=== PATIENT | male | born 1930 | race Caucasian/White ===

== ENCOUNTER 2017-10-05 08:02 | Emergency (ER) | payer OTHER ==
[2017-10-05 08:16] VITALS: BMI 22.8
--- NOTE | 2017-10-05 08:28 | PDOC ---
History of Present Illness - General Chief Complaint: Respiratory Stated Complaint: SOB Time Seen by Provider: 10/05/17 08:27 - History of Present Illness Initial Comments: 10/05/17 09:29 86yo man with PMH of prostate Ca (in remission), HTN, HLD, AD who presents with acute onset of generalized jerking motions of all 4 extremities. History obtained from , who is at bedside. This is the first episode. Pt denies WARD, fever, chills. No dysuria. Patient was recently started on Bupropion. 10/05/17 11:24 Past History - Past Medical History Allergies/Adverse Reactions: Allergies Allergy/AdvReac Type Severity Reaction Status Date / Time tetanus toxoid, adsorbed Allergy Verified 10/05/17 08:09 tetnus Allergy Unknown Uncoded 10/05/17 08:09 Home Medications: Ambulatory Orders Acetaminophen/Caffeine/Butalb [Fioricet -] 1 tablet PO DAILY 09/22/17 Ammonium Lactate Lotion [Lac-Hydrin 12% Lotion -] 1 applic TP ASDIR 09/22/17 Aspirin [ASA -] 81 mg PO DAILY 09/22/17 Atenolol [Tenormin -] 100 mg PO DAILY #14 tablet 09/22/17 Atorvastatin Ca [Lipitor] 10 mg PO HS 09/22/17 Furosemide 20 mg PO DAILY 09/22/17 Omeprazole 20 mg PO DAILY 09/22/17 Oxybutynin Chloride [Oxybutynin Chloride ER] 5 mg PO DAILY 09/22/17 Rivastigmine [Exelon Patch 9.5 mg/24 Hours] 1 each TD DAILY 09/22/17 Tamsulosin HCl [Flomax] 0.4 mg PO DAILY 09/22/17 COPD: No Diabetes: Yes (ALZHEIMERS.) HTN: Yes - Suicide/Smoking/Psychosocial Hx Smoking History: Never smoked Hx Alcohol Use: Yes (socially) Drug/Substance Use Hx: No Substance Use Type: None *Physical Exam - Vital Signs Last Vital Signs Temp Pulse Resp BP Pulse Ox 97.6 F 60 14 133/89 97 10/05/17 08:10 10/05/17 08:10 10/05/17 08:10 10/05/17 08:10 10/05/17 08:10 - Physical Exam General Appearance: Yes: Nourished, Appropriately Dressed HEENT: positive: Normal ENT Inspection Neck: positive: Supple Respiratory/Chest: positive: Lungs Clear, Normal Breath Sounds Cardiovascular: positive: Regular Rhythm, Regular Rate Gastrointestinal/Abdominal: positive: Soft. 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 Generalized age-related volume loss with mild microvascular ischemic changes. 10/05/17 11:23 Medical Decision Making - Medical Decision Making 86yo man who presents with acute onset of jerky motions of extremities every few minutes (witnessed here). Highest on the DDx include medication-induced, infectious, brain mets/leptomenigneal disease. Will order Head CT, cbc, cmp, trop, UA, blood cultures. 10/05/17 09:33 10/05/17 11:[address] did not reveal acute intracranial pathology, however Brain MRI with IV contrast is needed to r/o metastases/leptomeningeal disease. CBC and CMP wnl. 1st Troponin neg. 10/05/17 11:36 EKG reveals bradycardia, rate 48, with LBBB (old), QTc 473. 10/05/17 12:56 Preliminary leukocyte esterase is negative --> UA not c/w UTI. 10/05/17 13:02 Patient is overall well-appearing and non-toxic. Labs and imaging are unconcerning for acute intracranial process or infectious etiology. Likely etiology of symptoms are medication induced. We have been unable to reach patient's PCP (Dr. Mazin Enrique) after mutliple attempts. Discussed with the daughter that we have been unable to reach PCP, and discussed whether she feels comfortable taking her father home versus keeping for observation. The daughter is okay with him going home, he will be surrounded with family and agrees to following up with the patient's PCP early next week. We have recommended to discontinue the Wellbutrin until he sees his PCP to discuss it further. *DC/Admit/Observation/Transfer Diagnosis at time of Disposition: Muscle, jerky movements (uncontrolled) - Discharge Dispostion Admit: No - Referrals Referrals: STAFF,NOT ON [Primary Care Provider] - - Patient Instructions Additional Instructions: Please see your primary care physician (Dr. Mazin Enrique) early next week to discuss your symptoms and review your medications. We recommend discontinuing the Wellbutrin until you discuss it further with your primary physician. Please return to the Emergency Department if you have new, worsening, or concerning symptoms. - Post Discharge Activity
[2017-10-05 09:36] LABS: BASOPHIL 0.6 % (0-2.0); EOSINOPHIL 3.8 % (0-4.5); MCH 27.6 pg (25.7-33.7); MEAN CELL VOLUME 83.5 fl (80-96); MEAN PLT VOLUME 8.6 fl (7.5-11.1); NEUTROPHILS 55.9 % (42.8-82.8); PLATELET COUNT 247 K/MM3 (134-434); RDW 14.3 % (11.9-15.9)
[2017-10-05 10:06] LABS: ALBUMIN 2.4 g/dl (3.4-5.0); ANION GAP 5 (8-16); BILIRUBIN,TOTAL 0.5 mg/dL (0.2-1.0); CALCIUM 8.5 mg/dL (8.5-10.1); CO2 30 mmol/L (21-32); CREATININE 1.1 mg/dL (0.7-1.3); GLUCOSE,RANDOM 101 mg/dL (74-106); SGPT/ALT 18 U/L (12-78); TOT PROT 6.2 g/dl (6.4-8.2)
[2017-10-05 10:08] LABS: ALK PHOS 58 U/L (45-117); TROPONIN I < 0.02 ng/ml (0.00-0.05)
[2017-10-05 10:10] LABS: SGOT/AST 25 U/L (15-37)
--- NOTE | 2017-10-05 10:50 | PDOC ---
Attending Attestation - Resident Resident Name: Mona Canales - ED Attending Attestation I have performed the following: I have examined & evaluated the patient, The case was reviewed & discussed with the resident, I agree w/resident's findings & plan, Exceptions are as noted - HPI HPI: 10/05/17 10:45 86 year old male with past medical history of prostate ca, dementia, HTN, HLD presents with "shaking". The patient was recently started on Welbutrin 1 week ago. Yesterday, noted that he was started to have intermittent few seconds of shaking episodes (not seizures). Denies fevers, chills. Persisted throughout the day. The patient denied any fevers, nausea, vomiting, diarrhea, cough. This is the first time episode. Family was unsure of the circumstances so came into the ED. - Physicial Exam PE: 10/05/17 10:50 GENERAL: Alert and awake, AAOx3 HEENT: EOMI/PERRLA NECK: supple CV: RRR, +s1, s2 PULM: CTA b/l ABD: soft, nd, nt. NEURO: CN II-XII intact, 5/5 strength upper and lower extremities. Sensation intact throughout. No pronator drift. Speech normal. - Medical Decision Making 10/05/17 10:52 Vital Signs Temp Pulse Resp BP Pulse Ox 97.6 F 60 14 133/89 97 10/05/17 08:10 10/05/17 08:10 10/05/17 08:10 10/05/17 08:10 10/05/17 08:10 86 year old M c/ multiple medical problems presents with shakes (which I witnessed here). It could potentially be chills. Will obtain a rectal temp, labs , cultures. However, could this be medication related from the Wellbutrin? Will obtain a head CT, labs, UA, and reassess. 10/05/17 12:[address] with no acute changes. CBC, BMP 10/05/17 09:25 10/05/17 09:25 CMP Sodium 143 mmol/L (136-145) 10/05/17 09:25 Potassium 4.7 mmol/L (3.5-5.1) 10/05/17 09:25 Chloride 108 mmol/L (98-107) H 10/05/17 09:25 Carbon Dioxide 30 mmol/L (21-32) 10/05/17 09:25 Anion Gap 5 (8-16) L 10/05/17 09:25 BUN 18 mg/dL (7-18) 10/05/17 09:25 Creatinine 1.1 mg/dL (0.7-1.3) 10/05/17 09:25 Creat Clearance w eGFR > 60 (>60) 10/05/17 09:25 Random Glucose 101 mg/dL (74-106) 10/05/17 09:25 Calcium 8.5 mg/dL (8.5-10.1) 10/05/17 09:25 Total Bilirubin 0.5 mg/dL (0.2-1.0) 10/05/17 09:25 AST 25 U/L (15-37) 10/05/17 09:25 ALT 18 U/L (12-78) 10/05/17 09:25 Alkaline Phosphatase 58 U/L (45-117) 10/05/17 09:25 Troponin I < 0.02 ng/ml (0.00-0.05) 10/05/17 09:25 Total Protein 6.2 g/dl (6.4-8.2) L 10/05/17 09:25 Albumin 2.4 g/dl (3.4-5.0) L 10/05/17 09:25 Urine Test Results Urine Color Yellow 10/05/17 12:15 Urine Appearance Slcloudy 10/05/17 12:15 Urine pH 6.0 (5.0-8.0) 10/05/17 12:15 Ur Specific [place] 1.016 (1.001-1.035) 10/05/17 12:15 Urine Protein Negative (NEGATIVE) 10/05/17 12:15 Urine Glucose (UA) Negative (NEGATIVE) 10/05/17 12:15 Urine Ketones Negative (NEGATIVE) 10/05/17 12:15 Urine Blood Negative (NEGATIVE) 10/05/17 12:15 Urine Nitrite Negative (NEGATIVE) 10/05/17 12:15 Urine Bilirubin Negative (NEGATIVE) 10/05/17 12:15 Urine leukocyte esterase preliminary is negative. It is certainly very possible that this may be an effect of the medication bupriopion. The patient overall is nontoxic and well-appearing. We have attempted to reach out to the patient's doctors multiple times but awaiting response. We'll touch base with the patient's daughter and if feeling more comfortable and the doctor says okay, patient can be discharged with PMD follow- up. We'll likely consider discontinuation of Wellbutrin for the moment. At this time, I do not suspect sepsis or occult infection or metabolic disarray. The patient overall seems to be at baseline occasionally has these shakes. Given the well appearance and the overall home situation where the daughter can care for the patient, I feel that the patient is safe for discharge with strict return precautions. It is certainly possible that this may be medication effect and given that the patient was only on this medication for one week, we've recommended that he discontinued the pupils on and have him follow-up with his doctor regards to medication regiment 10/05/17 13:30 Heart Score/ECG Review #1 ECG reviewed & interpreted by me at: 11:10 10/05/17 11:26 NSR 48 with 1st degree AV block, left axis deviation, LBBB, QTC 473 msec
[2017-10-05 11:37] VITALS: TEMP 97.8
[2017-10-05 12:28] LABS: URINE APPEARANCE SLCLOUDY; URINE BILIRUBIN NEGATIVE (NEGATIVE); URINE BLOOD NEGATIVE (NEGATIVE); URINE COLOR YELLOW; URINE GLUCOSE (UA) NEGATIVE (NEGATIVE); URINE KETONE NEGATIVE (NEGATIVE); URINE NITRITE NEGATIVE (NEGATIVE); URINE PROTEIN NEGATIVE (NEGATIVE); URINE UROBILINOGEN NEGATIVE mg/dL (0.2-1.0)
[2017-10-05 13:31] VITALS: BP 159/90; PULSE 68
[2017-10-05 15:27] LABS: URINE LEUK ESTERASE Negative (NEGATIVE)
--- NOTE | 2017-10-05 21:17 | EKG ---
Test Reason : Blood Pressure : / mmHG Vent. Rate : 048 BPM Atrial Rate : 048 BPM P-R Int : 230 ms QRS Dur : 154 ms QT Int : 530 ms P-R-T Axes : 063 -48 142 degrees QTc Int : 473 ms SINUS BRADYCARDIA WITH 1ST DEGREE A-V BLOCK LEFT AXIS DEVIATION LEFT BUNDLE BRANCH BLOCK ABNORMAL ECG WHEN COMPARED WITH ECG OF 22-SEP-2017 16:15, VENT. RATE HAS DECREASED Confirmed by DAWN CHAN, CARLEY ([id number]) on 10/05/2017 9:16:48 PM Referred By: Confirmed By:CARLEY SEYMOUR MD
== END 2017-10-05 13:33 | disposition home or self-care (01) ==
LOC: JER 08:02
DX: G25.89 Other specified extrapyramidal and movement disorders (principal); I10 Essential (primary) hypertension; E78.00 Pure hypercholesterolemia, unspecified; G30.8 Other Alzheimer's disease; F02.80 Dementia in other diseases classified elsewhere, unspecified severity, without behavioral disturbance, psychotic disturbance, mood disturbance, and anxiety
CPT/HCPCS: 36415; 70450-TC; 80053; 81003; 84484; 85025; 87040; 93005; 93010; 99284-25

== ENCOUNTER 2017-11-02 10:05 | Observation (INO) | payer OTHER ==
[2017-11-02 10:33] VITALS: BMI 21.8
[2017-11-02 10:42] LABS: BASO % 0.4 % (0-2.0); EOS % 1.7 % (0-4.5); MCH 27.6 pg (25.7-33.7); MCHC 32.5 g/dl (32.0-35.9); MEAN CELL VOLUME 84.7 fl (80-96); MEAN PLT VOLUME 8.9 fl (7.5-11.1); NEUT % 68.3 % (42.8-82.8); PLATELET COUNT 293 K/MM3 (134-434); RDW 14.9 % (11.9-15.9)
--- NOTE | 2017-11-02 10:52 | PDOC ---
Attending Attestation - Resident Resident Name: Bam Morales - HPI HPI: 11/02/17 14:50 pt presents to the Ed complaining of coffee ground emesis x 2. Denies fever or abdominal pain. No bloody or dark stool. - Physicial Exam PE: 11/02/17 15:03 Agree with resident exam. Patient is well appearing and comfortable. Abdomen is non tender. - Medical Decision Making 11/02/17 15:04 Pt presents to the ED complaining of coffee ground emesis x 2. No fever, abdominal pain or bloody stools. Labs show no evidence of anemia. Will admit to medicine for observation and serial hemoglobins.
--- NOTE | 2017-11-02 10:59 | PDOC ---
History of Present Illness - General Chief Complaint: Coffee Ground Emesis Stated Complaint: GI BLEED Time Seen by Provider: 11/02/17 10:18 - History of Present Illness Initial Comments: 11/02/17 11:14 The patient is an 86 year old male with a history of HTN, Prostate CA, and Alzheimer's who presents for evaluation of bloody vomit. The patient is accompanied by family who assist in providing the history. They report that the patient experienced 2 episodes of coffee ground emasis earlier this morning prompting their presentation to the ED for evaluation. The patient denies any abdominal pain or other symptoms. He denies fevers, chills, SOB, chest pain, bloody stools or changes with urination or bowel movements. Past History - Past Medical History Allergies/Adverse Reactions: Allergies Allergy/AdvReac Type Severity Reaction Status Date / Time tetanus toxoid, adsorbed Allergy Verified 11/02/17 10:29 tetnus Allergy Unknown Uncoded 11/02/17 10:29 Home Medications: Ambulatory Orders Aspirin [ASA -] 81 mg PO DAILY 09/22/17 Atorvastatin Ca [Lipitor] 10 mg PO HS 09/22/17 Furosemide 20 mg PO DAILY 09/22/17 Omeprazole 20 mg PO DAILY 09/22/17 Oxybutynin Chloride [Oxybutynin Chloride ER] 5 mg PO DAILY 09/22/17 Tamsulosin HCl [Flomax] 0.4 mg PO DAILY 09/22/17 Alprazolam [Xanax] 0.25 mg PO HS 11/02/17 Donepezil HCl [Aricept] 5 mg PO 11/02/17 COPD: No Diabetes: Yes (ALZHEIMERS.) HTN: Yes - Suicide/Smoking/Psychosocial Hx Smoking History: Never smoked Have you smoked in the past 12 months: No Information on smoking cessation initiated: No Hx Alcohol Use: No Drug/Substance Use Hx: No Substance Use Type: None Review of Systems - Review of Systems Comments:: 11/02/17 11:19 Constitutional: No fevers, chills, fatigue, malaise HEENT: No Rhinorrhea, nasal congestion, visual changes Cardiovascular: No chest pain, syncope, palpitations, lightheadedness Respiratory: No Cough, SOB, Hemoptysis, Gastrointestinal: Nausea, Coffee Ground Emesis. No Abdominal pain, Constipation , Diarrhea, Melena Genitourinary: No Dysuria, Frequency, Urgency, Hesitancy, Hematuria, Flank pain Musculoskeletal: No Myalgia, arthralgia Skin: No rashes, bruising, pallor Neurologic: No Headache, Dizziness, Numbness, Weakness, or Tingling Psychiatric: No Hallucinations. No SI or HI *Physical Exam - Vital Signs Last Vital Signs Temp Pulse Resp BP Pulse Ox 98.6 F 58 L 20 191/84 98 11/02/17 10:29 11/02/17 10:29 11/02/17 10:29 11/02/17 10:29 11/02/17 10:29 - Physical Exam Comments: 11/02/17 11:20 General Appearance: Nourished. No Apparent Distress HEENT: EOMI, MAURO. No Pharyngeal Erythema, Tonsillar Exudate, Tonsillar Erythema Neck: No Cervical Lymphadenopathy Respiratory/Chest: Lungs Clear, Normal Breath Sounds. No Crackles, Rales, Rhonchi, Wheezing Cardiovascular: Regular Rhythm, Regular Rate. No Murmur, Gallops, Rubs Gastrointestinal/Abdominal: Normal Bowel Sounds, Soft. Mild epigastric tenderness to palpation. No Guarding, Rebound Musculoskeletal: No CVA Tenderness Extremity: Normal Capillary Refill Integumentary: Normal Color, Dry, Warm Neurologic: Alert, Normal Mood/Affect, Normal Response, ED Treatment Course - LABORATORY CBC & Chemistry Diagram: 11/02/17 10:30 11/02/17 10:30 - ADDITIONAL ORDERS Additional order review: 11/02/17 10:30 RBC 5.16 MCV 84.7 MCHC 32.5 RDW 14.9 MPV 8.9 Neutrophils % 68.3 D Lymphocytes % 22.1 D Monocytes % 7.5 Eosinophils % 1.7 Basophils % 0.4 Medical Decision Making - Medical Decision Making 11/02/17 11:21 The patient is an 86 year old male with a history of HTN, Prostate CA, and Alzheimer's who presents for evaluation of bloody vomit. Given that the patient had visible coffee-ground emesis here in the ED, it is likely his symptoms are due to an Upper GI bleed. The patient appears clinically stable on exam without any other complaints. However, we will obtain a type and screen , cbc, cmp, coags, and a stool occult blood to evaluate further. We will treat the patient with a dose of protonix and continue to monitor and reassess. 11/02/17 11:51 CBC, CMP, Coags are unremarkable. Stool occult blood is negative. Given the patient's age and history of coffee ground emesis, we believe the patient requires observation admission for further management of his symptoms. We discussed the case with the hospitalist team who accepted the patient for admission. We discussed the results and the plan with the patient and his family who voiced understanding and are agreeable with the plan. *DC/Admit/Observation/Transfer Diagnosis at time of Disposition: Coffee ground emesis - Discharge Dispostion Condition at time of disposition: Stable Admit: Yes - Referrals - Patient Instructions - Post Discharge Activity
[2017-11-02] MEDS ORDERED: PANTOPRAZOLE SODIUM 40 MG VIAL IVPUSH ONE (11:00)
[2017-11-02 11:04] LABS: INR 1.01 (0.82-1.09); PROTHROMBIN TIME (PATIENT) 11.4 SEC (9.98-11.88)
[2017-11-02 11:06] LABS: ACTIVATED PTT 21.8 SECONDS (26.9-34.4)
[2017-11-02] MEDS ORDERED: PANTOPRAZOLE SODIUM 40 MG/100 ML BAG IVPB ONE (11:09)
[2017-11-02 11:28] LABS: ALBUMIN 2.5 g/dl (3.4-5.0); ANION GAP 8 (8-16); BILIRUBIN,TOTAL 0.5 mg/dL (0.2-1.0); CALCIUM 8.8 mg/dL (8.5-10.1); CO2 27 mmol/L (21-32); CREATININE 1.1 mg/dL (0.7-1.3); GLUCOSE,RANDOM 115 mg/dL (74-106); SGPT/ALT 21 U/L (12-78)
[2017-11-02 11:29] LABS: ALK PHOS 71 U/L (45-117)
[2017-11-02 11:34] LABS: SGOT/AST 36 U/L (15-37)
--- NOTE | 2017-11-02 12:42 | EKG ---
Test Reason : Blood Pressure : / mmHG Vent. Rate : 062 BPM Atrial Rate : 062 BPM P-R Int : 234 ms QRS Dur : 156 ms QT Int : 470 ms P-R-T Axes : 041 -53 126 degrees QTc Int : 477 ms SINUS RHYTHM WITH 1ST DEGREE A-V BLOCK LEFT AXIS DEVIATION LEFT BUNDLE BRANCH BLOCK ABNORMAL ECG WHEN COMPARED WITH ECG OF 05-OCT-2017 11:09, NO SIGNIFICANT CHANGE WAS FOUND Confirmed by LOUISA CHAN, KEVIN ([id number]) on 11/02/2017 12:42:21 PM Referred By: Confirmed By:KEVIN JASSO MD
[2017-11-02] MEDS ORDERED: ACETAMINOPHEN 325 MG TABLET (FP) PO PRN (12:45)
--- NOTE | 2017-11-02 12:45 | HP ---
PCP: Mazin Enrique CHIEF COMPLAINT: Vomiting HISTORY OF PRESENT ILLNESS: This is an 86 year old man who comes to the ER today complaining of vomiting. He is unable to provide much history secondary to dementia. Family reports that he vomited coffee grounds twice this morning. They deny that he has had abdominal pain, nausea, melena, rectal bleeding, history of ulcers, weight loss, loss of appetite. PAST MEDICAL HISTORY: Hypertension Hyperlipidemia Prostate cancer Alzheimer dementia PAST SURGICAL HISTORY: Social History: Smoking: Never smoked Alcohol: No Drugs: No Recent Travel: No Family History: Non-contributory Allergies tetanus toxoid, adsorbed Allergy (Verified 11/02/17 10:29) tetnus Allergy (Unknown, Uncoded 11/02/17 10:29) Home Medications Medication Instructions Recorded Aspirin [ASA -] 81 mg PO DAILY 09/22/17 Atorvastatin Ca [Lipitor] 10 mg PO HS 09/22/17 Furosemide 20 mg PO DAILY 09/22/17 Omeprazole 20 mg PO DAILY 09/22/17 Oxybutynin Chloride [Oxybutynin 5 mg PO DAILY 09/22/17 Chloride ER] Tamsulosin HCl [Flomax] 0.4 mg PO DAILY 09/22/17 Alprazolam [Xanax] 0.25 mg PO HS 11/02/17 Donepezil HCl [Aricept] 5 mg PO 11/02/17 REVIEW OF SYSTEMS Unable to obtain PHYSICAL EXAMINATION Vital Signs - 24 hr 11/02/17 11/02/17 10:29 10:50 Temperature 98.6 F Pulse Rate 58 L Respiratory 20 Rate Blood Pressure 191/84 Blood Pressure 168/75 [Right Arm] O2 Sat by Pulse 98 100 Oximetry (%) GENERAL: Awake, alert, in no acute distress. HEAD: Normal with no signs of trauma. EYES: Pupils equal, round and reactive to light, sclerae anicteric, conjunctivae clear. EARS, NOSE, THROAT: Ears normal, nares patent, oropharynx clear without exudates. Moist mucous membranes. NECK: Normal range of motion, supple without lymphadenopathy, JVD, or masses. LUNGS: Breath sounds equal, clear to auscultation bilaterally. No wheezes, and no crackles. No accessory muscle use. HEART: Regular rate and rhythm, normal S1 and S2 without murmur, rub or gallop. ABDOMEN: Soft, nontender, not distended, normoactive bowel sounds, no guarding, no rebound, no masses. No hepatomegaly or splenomegaly. MUSCULOSKELETAL: Normal passive range of motion at all joints. No CVA tenderness. UPPER EXTREMITIES: 2+ pulses, warm, well-perfused. No cyanosis. No clubbing. No peripheral edema. LOWER EXTREMITIES: 2+ pulses, warm, well-perfused. No calf tenderness. No peripheral edema. NEUROLOGICAL: Unable to cooperate. No gross focal deficits. PSYCHIATRIC: Unable to assess. SKIN: Warm, dry, normal turgor, no rashes or lesions noted, normal capillary refill. Laboratory Results - last 24 hr 11/02/17 11/02/17 11/02/17 10:30 10:30 10:30 WBC 10.0 RBC 5.16 Hgb 14.2 Hct 43.7 MCV 84.7 MCH 27.6 MCHC 32.5 RDW 14.9 Plt Count 293 MPV 8.9 Neutrophils % 68.3 D Lymphocytes % 22.1 D Monocytes % 7.5 Eosinophils % 1.7 Basophils % 0.4 PT with INR 11.40 INR 1.01 PTT (Actin FS) 21.8 L Sodium 142 Potassium 4.6 Chloride 107 Carbon Dioxide 27 Anion Gap 8 BUN 21 H Creatinine 1.1 Creat Clearance w eGFR > 60 Random Glucose 115 H Calcium 8.8 Total Bilirubin 0.5 AST 36 D ALT 21 Alkaline Phosphatase 71 D Total Protein 7.0 Albumin 2.5 L Stool Occult Blood Blood Type Antibody Screen 11/02/17 11/02/17 10:30 11:00 WBC RBC Hgb Hct MCV MCH MCHC RDW Plt Count MPV Neutrophils % Lymphocytes % Monocytes % Eosinophils % Basophils % PT with INR INR PTT (Actin FS) Sodium Potassium Chloride Carbon Dioxide Anion Gap BUN Creatinine Creat Clearance w eGFR Random Glucose Calcium Total Bilirubin AST ALT Alkaline Phosphatase Total Protein Albumin Stool Occult Blood Negative Blood Type B POSITIVE Antibody Screen Negative ASSESSMENT/PLAN: This is an 86 year old man with a history of HTN, hyperlipidemia, prostate cancer, Alzheimer dementia who presents to the ER today with coffee grounds emesis x 2 as per family. 1. Coffee grounds emesis - No vomiting in ER - Hemoglobin 14.2 and stool is negative for occult blood - Place in observation - Monitor hemoglobin - Hold aspirin - Increase PPI to 2x daily 2. Hypertension - Continue Lasix 3. Hyperlipidemia - Continue Lipitor 4. Prostate cancer 5. Alzheimer dementia - Continue Aricept
[2017-11-02] MEDS: SODIUM CHLORIDE 0.45% 1,000 ML IV SCH (14:10)
[2017-11-02] MEDS ORDERED: LORazepam 2 MG/ML SDV VIAL IVPUSH ONE ×2 (16:27→21:00)
[2017-11-02] MEDS ORDERED: LORazepam 2 MG/ML SDV VIAL ONE (16:28)
[2017-11-02 18:27] LABS: MCH 27.8 pg (25.7-33.7); MCHC 33.1 g/dl (32.0-35.9); MEAN CELL VOLUME 83.8 fl (80-96); MEAN PLT VOLUME 9.2 fl (7.5-11.1); PLATELET COUNT 223 K/MM3 (134-434); RDW 14.5 % (11.9-15.9); WHITE BLOOD COUNT 9.4 K/mm3 (4.0-10.0)
[2017-11-02] MEDS ORDERED: ATENOLOL 50 MG TABLET (FP) PO ONE (21:00)
[2017-11-02] MEDS ORDERED: ALPRAZolam 0.25 MG TABLET PO SCH (22:00)
[2017-11-02] MEDS ORDERED: ATORVASTATIN CA 10 MG TABLET (FP) PO SCH (22:00)
[2017-11-02] MEDS ORDERED: DONEPEZIL HCL 5 MG TABLET (FP) PO SCH (22:00)
[2017-11-02] MEDS: PANTOPRAZOLE 40 MG TABLET (FP) PO SCH (22:21)
[2017-11-03] MEDS: SODIUM CHLORIDE 0.45% 1,000 ML IV SCH ×2 (06:11→12:45)
[2017-11-03] MEDS ORDERED: TAMSULOSIN HCL 0.4 MG CAP.ER.24H (FP) PO SCH (08:30)
[2017-11-03] MEDS ORDERED: OXYBUTYNIN CHLORIDE 5 MG TABLET PO SCH (10:00)
[2017-11-03] MEDS ORDERED: ATENOLOL 50 MG TABLET (FP) PO SCH (10:00)
[2017-11-03] MEDS ORDERED: SOLIFENACIN SUCCINATE 5 MG TAB (FP) PO SCH (10:00)
[2017-11-03] MEDS ORDERED: PATIENT'S OWN MEDICATION (NON-FORMULARY) (Oxybutynin Chloride [Ditropan Xl] 5 MG) PO SCH (10:00)
[2017-11-03] MEDS ORDERED: FUROSEMIDE 20 MG TABLET (FP) PO SCH (10:00)
[2017-11-03] MEDS ORDERED: DONEPEZIL HCL 5 MG TABLET (FP) PO SCH (10:00)
[2017-11-03] MEDS ORDERED: HYDROCHLOROTHIAZIDE 25 MG TABLET (FP) PO SCH (10:00)
[2017-11-03] MEDS: PANTOPRAZOLE 40 MG TABLET (FP) PO SCH (10:23)
[2017-11-03 10:48] VITALS: TEMP 97.4
--- NOTE | 2017-11-03 15:12 | PN ---
Progress Note (short form) - Note Progress Note: Subjective: The patient was seen and examined at the bedside, he appears restless. No vomiting since he arrived to the ED. F/u repeat labs today. Current Medications Generic Name Dose Route Start Last Admin Trade Name Freq PRN Reason Stop Dose Admin Acetaminophen 650 mg 11/02/17 12:45 Tylenol - PO Q4H PRN FEVER OR PAIN Atenolol 100 mg 11/03/17 10:00 11/03/17 10:23 Tenormin - PO 100 mg DAILY KARY Administration Atorvastatin Calcium 10 mg 11/02/17 22:00 11/02/17 22:21 Lipitor - PO 10 mg HS KARY Administration Donepezil HCl 5 mg 11/03/17 10:00 11/03/17 10:24 Aricept - PO 5 mg DAILY KARY Administration Furosemide 20 mg 11/03/17 10:00 11/03/17 10:22 Lasix - PO 20 mg DAILY KARY Administration Hydrochlorothiazide 25 mg 11/03/17 10:00 11/03/17 10:23 Hctz - PO 25 mg DAILY KARY Administration Sodium Chloride 1,000 mls @ 83 mls/hr 11/02/17 12:45 11/03/17 06:11 1/2 Normal Saline IV 83 mls/hr ASDIR KARY Administration Pantoprazole Sodium 40 mg 11/02/17 22:00 11/03/17 10:23 Protonix - PO 40 mg BID KARY Administration Solifenacin 5 mg 11/03/17 10:00 11/03/17 10:23 Vesicare - PO 5 mg DAILY KARY Administration Tamsulosin HCl 0.4 mg 11/03/17 08:30 11/03/17 08:17 Flomax - PO 0.4 mg DAILY@0830 KARY Administration Objective: Vital Signs Period Temp Pulse Resp BP Sys/Armendariz Pulse Ox Last 24 Hr 97.4 F-98.2 F 61-84 18-22 118-180/70-96 92-100 Physical Exam: Patient has refused CBCD WBC 9.4 K/mm3 (4.0-10.0) 11/02/17 17:59 RBC 4.86 M/mm3 (4.00-5.60) 11/02/17 17:59 Hgb 13.5 GM/dL (11.7-16.9) 11/02/17 17:59 Hct 40.7 % (35.4-49) 11/02/17 17:59 MCV 83.8 fl (80-96) 11/02/17 17:59 MCHC 33.1 g/dl (32.0-35.9) 12 17:59 RDW 14.5 % (11.9-15.9) 11/02/17 17:59 Plt Count 223 K/MM3 (134-434) D 11/02/17 17:59 MPV 9.2 fl (7.5-11.1) 11/02/17 17:59 CMP Sodium 142 mmol/L (136-145) 11/02/17 10:30 Potassium 4.6 mmol/L (3.5-5.1) 11/02/17 10:30 Chloride 107 mmol/L (98-107) 11/02/17 10:30 Carbon Dioxide 27 mmol/L (21-32) 11/02/17 10:30 Anion Gap 8 (8-16) 11/02/17 10:30 BUN 21 mg/dL (7-18) H 11/02/17 10:30 Creatinine 1.1 mg/dL (0.7-1.3) 11/02/17 10:30 Creat Clearance w eGFR > 60 (>60) 11/02/17 10:30 Random Glucose 115 mg/dL (74-106) H 11/02/17 10:30 Calcium 8.8 mg/dL (8.5-10.1) 11/02/17 10:30 Total Bilirubin 0.5 mg/dL (0.2-1.0) 11/02/17 10:30 AST 36 U/L (15-37) D 11/02/17 10:30 ALT 21 U/L (12-78) 11/02/17 10:30 Alkaline Phosphatase 71 U/L (45-117) D 11/02/17 10:30 Total Protein 7.0 g/dl (6.4-8.2) 11/02/17 10:30 Albumin 2.5 g/dl (3.4-5.0) L 11/02/17 10:30 Assessment: This is an 86 year old male with PMHx of of HTN, hyperlipidemia, prostate cancer, alzheimer's dementia, who presented to the ED with vomiting and two episodes of coffee ground emesis Plan: 1) Coffee ground emesis - No further episodes since arriving in the ED - F/u H/Ht today, if stable can discharge home with GI follow-up as outpatient - Continue Protonix 40mg po bid - Hold ASA 2) HTN - Continue Atenolol - Continue Lasix - Continue Hctz 3) Hyperlipidemia - Continue Lipitor 4) Prostate cancer 5) Alzheimer dementia - Continue Aricept 6) F/E/N: - Sodium controlled diet - Monitor electrolytes 7) Prophylaxis: - PT evaluation - Hold all chemical DVT prophylaxis 2/2 possible GI bleed 8) Dispo: - Once CBC results and H/H is stable and PT evaluation performed CODE STATUS: FULL CODE Visit type - Emergency Visit Emergency Visit: Yes ED Registration Date: 11/02/17 Care time: The patient presented to the Emergency Department on the above date and was hospitalized for further evaluation of their emergent condition. - New Patient This patient is new to me today: Yes Date on this admission: 11/03/17 - Critical Care Critical Care patient: No
[2017-11-03 17:26] LABS: BASO # 0.1 # (0.1-1); BASO % 0.9 % (0-2.0); EOS # 0.2 # (0-4.5); EOS % 1.7 % (0-4.5); LYMPH # 1.9 (8-40); MCH 27.7 pg (25.7-33.7); MCHC 33.2 g/dl (32.0-35.9); MEAN CELL VOLUME 83.4 fl (80-96); MEAN PLT VOLUME 9.5 fl (7.5-11.1); MONO # 1.2 # (3.8-10.2); NEUT # 6.6 # (42.8-82.8); NEUT % 66.6 % (42.8-82.8); PLATELET COUNT 245 K/MM3 (134-434); RDW 14.7 % (11.9-15.9)
[2017-11-03 18:08] LABS: ALBUMIN 2.4 g/dl (3.4-5.0); ANION GAP 9 (8-16); BILIRUBIN,TOTAL 0.6 mg/dL (0.2-1.0); CALCIUM 8.1 mg/dL (8.5-10.1); CO2 26 mmol/L (21-32); CREATININE 1.1 mg/dL (0.7-1.3); GLUCOSE,RANDOM 93 mg/dL (74-106); SGOT/AST 30 U/L (15-37); SGPT/ALT 19 U/L (12-78); TOT PROT 6.2 g/dl (6.4-8.2)
[2017-11-03 18:09] LABS: ALK PHOS 65 U/L (45-117)
--- NOTE | 2017-11-03 19:06 | DS ---
Physical Examination Vital Signs: Vital Signs Temperature 97.4 F L 11/03/17 19:00 Pulse Rate 78 11/03/17 19:00 Respiratory Rate 18 11/03/17 19:00 Blood Pressure 154/62 11/03/17 19:00 O2 Sat by Pulse Oximetry (%) 92 L 11/03/17 12:00 Labs: CBC, BMP 11/03/17 16:00 11/03/17 16:00 Discharge Summary Reason For Visit: COFFEE GROUND EMESIS Current Active Problems Coffee ground emesis (Acute) Condition: Improved - Instructions Diet, Activity, Other Instructions: Please return to the ED with new, persistent, or worsening symptoms. Please follow-up with providers as indicated. Referrals: Thiago Moreno MD [Staff Physician] - (Please follow-up with your primary care provider within 1 week to have your CBC (hemoglobin and hematocrit) rechecked. ) Miguel Gray MD [Staff Physician] - (Please follow-up with Dr. Gray ( gastrointestinal specialist) within 1 week ) Disposition: VNS/HOME HEALTH CARE - Home Medications Comprehensive Discharge Medication List: Ambulatory Orders Atorvastatin Ca [Lipitor] 10 mg PO HS 09/22/17 Furosemide 20 mg PO DAILY 09/22/17 Tamsulosin HCl [Flomax] 0.4 mg PO DAILY 09/22/17 Alprazolam [Xanax] 0.25 mg PO HS 11/02/17 Atenolol [Tenormin -] 100 mg PO DAILY 11/02/17 Hydrochlorothiazide [Hctz -] 25 mg PO DAILY 11/02/17 Oxybutynin Chloride [Ditropan Xl] 5 mg PO DAILY 11/02/17 Acetaminophen [Tylenol .Regular Strength -] 650 mg PO Q4H PRN tablet 11/03/17 Donepezil HCl [Aricept] 5 mg PO DAILY #30 tab 11/03/17 Pantoprazole Sodium [Protonix -] 40 mg PO BID #60 tablet.ec 11/03/17 Solifenacin Succinate [Vesicare -] 5 mg PO DAILY #30 tab 11/03/17
[2017-11-03 19:25] VITALS: BP 140/80; PULSE 85
== END 2017-11-03 21:06 | disposition home health service (06) ==
LOC: JER 10:05 → INTOOBSV 11:53 → JERBED 11:53 → UNDOADMOB 11:53 → JERBED 12:47 → J5S 17:30
PROVIDERS: ADMIT Internal Medicine; ATTEND Registered Nurse
PROC: 3E033GC Introduction of Other Therapeutic Substance into Peripheral Vein, Percutaneous Approach (ICD-10-PCS; principal; 2017-11-02)
PROC: 3E0337Z Introduction of Electrolytic and Water Balance Substance into Peripheral Vein, Percutaneous Approach (ICD-10-PCS; 2017-11-02)
DX: K92.0 Hematemesis (principal); I10 Essential (primary) hypertension; C61 Malignant neoplasm of prostate; G30.9 Alzheimer's disease, unspecified; F02.80 Dementia in other diseases classified elsewhere, unspecified severity, without behavioral disturbance, psychotic disturbance, mood disturbance, and anxiety; Z88.8 Allergy status to other drugs, medicaments and biological substances; Z79.82 Long term (current) use of aspirin; E78.5 Hyperlipidemia, unspecified
CPT/HCPCS: 36415; 80053; 82272; 85025; 85027; 85610; 85730; 86850; 86900; 86901; 93005; 93010; 96374; 96375; 96376; 97116-GP; 97161-GP; 99285-25; G0378

== ENCOUNTER 2018-06-17 11:57 | Observation (INO) | payer OTHER ==
--- NOTE | 2018-06-17 12:04 | PDOC ---
Attending Attestation - Resident Resident Name: Maria Luisa Garcia - ED Attending Attestation I have performed the following: I have examined & evaluated the patient, The case was reviewed & discussed with the resident, I agree w/resident's findings & plan, Exceptions are as noted - HPI HPI: 87 yo M with history of HTN, HL, prostate CA, dementia presents s/p unwitnessed fall at 4am. As per , he was attempting to use urinal, missed it, then slipped and fell on his urine. He landed on his left side. He had difficulty getting up and she was unable to help him. The home health aide was able to help them 30 minutes later. As per the , he was awake when she came to his side, but he was speaking in an unintelligible manner. After a few minutes, it improved back to baseline. Pt currently denies any symptoms, however, does not clearly recall what happened. - Physicial Exam PE: GENERAL: Awake, alert, and oriented to person and place but not time. In no acute distress HEAD: No signs of trauma EYES: PERRLA, EOMI, sclera anicteric, conjunctiva clear ENT: Auricles normal inspection, hearing grossly normal, nares patent, oropharynx clear without exudates. Moist mucosa NECK: Normal ROM, supple, no lymphadenopathy, JVD, or masses LUNGS: Breath sounds equal, clear to auscultation bilaterally. No wheezes, and no crackles HEART: Regular rate and rhythm, normal S1 and S2, no murmurs, rubs or gallops ABDOMEN: Soft, nontender, normoactive bowel sounds. No guarding, no rebound. No masses MUSCULOSKELETAL: Normal range of motion. 2+ pitting edema to BLE, mid-lance. No clubbing or cyanosis. No cords, erythema, or tenderness. Pelvis stable and nontender. NEUROLOGICAL: Cranial nerves II through XII grossly intact. Normal speech. Motor and sensation intact. SKIN: Warm, Dry, normal turgor, no rashes or lesions noted. - Medical Decision Making Pt presents s/p unwitnessed fall, now having difficulty walking due to weakness. AMS workup done in ED, no specific findings to explain his state this morning. will admit for further workup.
--- NOTE | 2018-06-17 12:06 | PDOC ---
History of Present Illness - General Stated Complaint: FALL Time Seen by Provider: 06/17/18 12:01 - History of Present Illness Initial Comments: 87yo M with PMH of HTN, HLD, Prostate Cancer, and Alzheimer's Dementia presenting after an unwitnessed fall at 4am. The patient reports he does not remember what happened but his says that he uses a urinal and slipped on urine that had spilled and fell on his left side. A similar incident occurred about three months ago. The reports that during the fall, the patient yelled, and she came to him immediately and denies loss of consciousness or seizure-like activity. She needed a home health aide to help lift the patient up so he remained on the floor for about a half hour. The patient's decided to bring him to the ED because immediately after the fall, the words he spoke did not make sense and he seemed very agitated. The patient has not been able to ambulate since the fall. Denies the use of a blood thinner or anticoagulant. Denies headache or neck pain. Denies chest pain, shortness of breath, or dental injury. 06/17/18 12:47 Past History - Past Medical History Allergies/Adverse Reactions: Allergies Allergy/AdvReac Type Severity Reaction Status Date / Time tetanus toxoid, adsorbed Allergy Verified 06/17/18 12:20 tetnus Allergy Unknown Uncoded 06/17/18 12:20 Home Medications: Ambulatory Orders Atorvastatin Ca [Lipitor] 10 mg PO HS 09/22/17 Tamsulosin HCl [Flomax] 0.4 mg PO DAILY 09/22/17 Atenolol [Tenormin -] 100 mg PO DAILY 11/02/17 Oxybutynin Chloride [Ditropan Xl] 5 mg PO DAILY 11/02/17 Donepezil HCl [Aricept] 5 mg PO DAILY #30 tab 11/03/17 Citalopram Hydrobromide [Citalopram HBr] 10 mg PO DAILY 06/17/18 Omeprazole 20 mg PO DAILY 06/17/18 Oxybutynin Chloride [Oxybutynin Chloride ER] 5 mg PO DAILY 06/17/18 COPD: No Dementia: Yes Diabetes: Yes (ALZHEIMERS.) Disorders: Yes (prostate ca) HTN: Yes Hypercholesterolemia: Yes - Immunization History Immunization Up to Date: Yes - Suicide/Smoking/Psychosocial Hx Smoking History: Never smoked Have you smoked in the past 12 months: No Hx Alcohol Use: No Drug/Substance Use Hx: No Substance Use Type: None Review of Systems - Review of Systems Comments:: Constitutional: no fever, no chills Cardiovascular: no chest pain, no palpitations Respiratory: no cough, no shortness of breath Gastrointestinal: no abdominal pain, no nausea, no vomiting Genitourinary: no dysuria, no frequency Musculoskeletal: no myalgia, no arthralgia Skin: no rash, no itching Neurologic: no headache, no dizziness *Physical Exam - Physical Exam Comments: General: Awake, alert, and fully oriented, in no acute distress Head: no signs of trauma Eyes: PERRL, EOMI, sclera anicteric ENT: Moist mucus membranes, Neck: Normal ROM, supple Lungs: Lungs clear, Normal breath sounds Cardio: Regular rhythm, S1 and S2 present Abdomen: Soft, nontender, normal bowel sounds Extremities: Normal range of motion, Distal pulses present SKIN: Warm, Dry, normal turgor, no rashes or lesions noted Neurologic: Cranial nerves II through XII grossly intact. Normal speech ED Treatment Course - LABORATORY CBC & Chemistry Diagram: 06/17/18 13:05 06/17/18 13:05 Medical Decision Making - Medical Decision Making 87yo M with unwitnessed fall, unable to ambulate afterwards. EKG, rate 4, QTc 460, 1st degree AV block, LAD, LBBB, consistent with EKG on 11/02/2017. Labs unremarkable. CT head and c spine with no evidence of bleed or fracture. Spoke with inpatient team who will accept patient for observation. 06/17/18 15:04 *DC/Admit/Observation/Transfer Diagnosis at time of Disposition: Fall Qualifiers: Encounter type: initial encounter Qualified Code(s): W19.XXXA - Unspecified fall, initial encounter - Discharge Dispostion Condition at time of disposition: Stable Decision to Admit order: Yes - Referrals - Patient Instructions - Post Discharge Activity
[2018-06-17 12:20] VITALS: BMI 22.1
[2018-06-17 13:15] LABS: BASO % 0.4 % (0-2.0); EOS % 3.9 % (0-4.5); HEMATOCRIT 38.2 % (35.4-49); HEMOGLOBIN 12.8 GM/dL (11.7-16.9); LYMPH % 29.4 % (8-40); MCH 27.6 pg (25.7-33.7); MCHC 33.5 g/dl (32.0-35.9); MEAN CELL VOLUME 82.4 fl (80-96); MEAN PLT VOLUME 8.9 fl (7.5-11.1); MONO % 10.5 % (3.8-10.2); NEUT % 55.8 % (42.8-82.8); PLATELET COUNT 187 K/MM3 (134-434); RBC 4.64 M/mm3 (4.00-5.60); WHITE BLOOD COUNT 6.7 K/mm3 (4.0-10.0)
[2018-06-17 13:25] LABS: INR 1.12 (0.83-1.09); PROTHROMBIN TIME (PATIENT) 12.6 SEC (9.7-13.0)
[2018-06-17 13:32] LABS: URINE APPEARANCE CLEAR; URINE BILIRUBIN NEGATIVE (<2.0 mg/dL); URINE COLOR LTYELLOW; URINE GLUCOSE (UA) NEGATIVE (NEGATIVE); URINE KETONE NEGATIVE (NEGATIVE); URINE LEUK ESTERASE NEGATIVE (NEGATIVE); URINE NITRITE NEGATIVE (NEGATIVE); URINE PROTEIN NEGATIVE (NEGATIVE); URINE UROBILINOGEN NEGATIVE mg/dL (0.2-1.0)
[2018-06-17 13:35] LABS: ALBUMIN 2.2 g/dl (3.4-5.0); ANION GAP 6 (8-16); BILIRUBIN,TOTAL 0.3 mg/dL (0.2-1.0); BLOOD UREA NITROGEN 15 mg/dL (7-18); CALCIUM 8.5 mg/dL (8.5-10.1); CHLORIDE 110 mmol/L (98-107); CO2 29 mmol/L (21-32); CREATININE 1.2 mg/dL (0.7-1.3); GLUCOSE,RANDOM 99 mg/dL (74-106); POTASSIUM 4.2 mmol/L (3.5-5.1); SGOT/AST 25 U/L (15-37); SGPT/ALT 18 U/L (12-78); SODIUM 145 mmol/L (136-145); TOT PROT 5.7 g/dl (6.4-8.2)
[2018-06-17 13:38] LABS: ALK PHOS 52 U/L (45-117)
--- NOTE | 2018-06-17 16:58 | HP ---
Admitting History and Physical - Admission Chief Complaint: s/p fall History of Present Illness: This is an 87year old male with pmhx HTN, HLD, prostate ca (treated) Alzheimer' s Dementia presented to the ED after unwitnessed fall at 4am. Per , she heard him yell out, he was down for ~30 mins bc she needed home health aid to help her lift him. He slipped on urine on the floor from use of urinal and landed on his left side, currently in no pain with return to baseline mental status. Reports no hitting of head, LOC, or anti coagulates. History Source: Patient, Medical Record Limitations to Obtaining History: Dementia - Past Medical History Cardiovascular: Yes: HTN Renal/: Yes: BPH, Cancer (prostate) - Smoking History Smoking history: Never smoked Have you smoked in the past 12 months: No - Alcohol/Substance Use Hx Alcohol Use: No - Social History Usual Living Arrangement: Yes: With Spouse ADL: Support Services History of Recent Travel: No Home Medications - Allergies Allergies/Adverse Reactions: Allergies Allergy/AdvReac Type Severity Reaction Status Date / Time tetanus toxoid, adsorbed Allergy Verified 06/17/18 12:20 tetnus Allergy Unknown Uncoded 06/17/18 12:20 - Home Medications Home Medications: Ambulatory Orders Atorvastatin Ca [Lipitor] 10 mg PO HS 09/22/17 Tamsulosin HCl [Flomax] 0.4 mg PO DAILY 09/22/17 Atenolol [Tenormin -] 100 mg PO DAILY 11/02/17 Oxybutynin Chloride [Ditropan Xl] 5 mg PO DAILY 11/02/17 Donepezil HCl [Aricept] 5 mg PO DAILY #30 tab 11/03/17 Citalopram Hydrobromide [Citalopram HBr] 10 mg PO DAILY 06/17/18 Omeprazole 20 mg PO DAILY 06/17/18 Oxybutynin Chloride [Oxybutynin Chloride ER] 5 mg PO DAILY 06/17/18 Review of Systems - Review of Systems Constitutional: reports: No Symptoms Eyes: reports: No Symptoms HENT: reports: No Symptoms Neck: reports: No Symptoms Cardiovascular: reports: No Symptoms Respiratory: reports: No Symptoms Gastrointestinal: reports: No Symptoms Genitourinary: reports: No Symptoms Musculoskeletal: reports: No Symptoms Integumentary: reports: No Symptoms Neurological: reports: Pre-Existing Deficit, Unsteady Gait Endocrine: reports: No Symptoms Hematology/Lymphatic: reports: No Symptoms Psychiatric: reports: No Symptoms Physical Examination Vital Signs: Vital Signs Temperature 98.3 F 06/17/18 12:16 Pulse Rate 59 L 06/17/18 12:16 Respiratory Rate 17 06/17/18 12:16 Blood Pressure 157/81 06/17/18 12:16 O2 Sat by Pulse Oximetry (%) 96 06/17/18 12:16 Constitutional: Yes: Calm Eyes: Yes: Conjunctiva Clear HENT: Yes: Atraumatic Neck: Yes: Supple Cardiovascular: Yes: Regular Rate and Rhythm, S1, S2 Respiratory: Yes: Regular, CTA Bilaterally Gastrointestinal: Yes: Normal Bowel Sounds, Soft Musculoskeletal: Yes: WNL Extremities: Yes: WNL Edema: Yes Edema: LLE: 1+, RLE: 1+ Neurological: Yes: Alert, Oriented, Confusion, Cran Nerves II-XII Intact, Pre- Existing Deficit Psychiatric: Yes: Alert Labs: CBC, BMP 06/17/18 13:05 06/17/18 13:05 Imaging - Results Chest X-ray: Report Reviewed X-ray: Report Reviewed Cat Scan: Report Reviewed EKG: Report Reviewed (SB w 1 degree avb) Problem List - Problems (1) Fall Code(s): W19.XXXA - UNSPECIFIED FALL, INITIAL ENCOUNTER Qualifiers: Encounter type: initial encounter Qualified Code(s): W19.XXXA - Unspecified fall, initial encounter Assessment/Plan Assessment: 87 year old male admitted s/p unwitnessed fall Plan: 1. s/p mechanical fall - Likely due to spilled urine, however due to pre existing dementia will need to r/o alternative etiology; pt bradycardic with 1 degree avb, stop bb - PT evaluation, will likely need walker, refuses NH - Telemetry monitoring, r/o arrhythmia - Head CT neg - UA, cxr neg for infectious signs 2. HTN, sinus sara - Elevated in ER - Hold BB - Trend, may need to start on low dose ca ch will 3. Prostate ca/BPH - Cont home meds 4. DVT - heparin sq 5. Dementia - Aricept 5mg daily Visit type - Emergency Visit Emergency Visit: Yes ED Registration Date: 06/17/18 Care time: The patient presented to the Emergency Department on the above date and was hospitalized for further evaluation of their emergent condition. - New Patient This patient is new to me today: Yes Date on this admission: 06/17/18 - Critical Care Critical Care patient: No Hospitalist Screening - Colonoscopy Questionnaire Colonoscopy Questionnaire: Colonoscopy Questionnaire - Patient: 50 - 75 years old and never had a screening colonoscopy: Unknown History of colon or rectal polyps, or CA: Unknown History of IBD, Crohn's disease or UC: Unknown History of abdominal radiation therapy as a child: Unknown - Relative: 1 with colon or rectal CA, or polyps at age 60 or younger: Unknown Colon or rectal CA diagnosed at age 45 or younger: Unknown Multiple relatives with colon or rectal CA: Unknown - Outcome: Screening Result: Negative Screen
[2018-06-17] MEDS ORDERED: HALOPERIDOL LACTATE 5 MG/ML IM ONE (21:37)
[2018-06-17] MEDS ORDERED: HALOPERIDOL LACTATE 5 MG/ML ONE (21:43)
[2018-06-17] MEDS ORDERED: ATORVASTATIN CA 10 MG TABLET (FP) ONE (22:43)
[2018-06-17] MEDS ORDERED: HEPARIN NA (PORCINE) 5,000 UNITS/ML 1ML VIAL ONE (22:43)
[2018-06-17] MEDS: ATORVASTATIN CA 10 MG TABLET (FP) PO SCH (22:53)
[2018-06-17] MEDS: HEPARIN NA (PORCINE) 5,000 UNITS/ML 1ML VIAL SQ SCH (22:53)
[2018-06-18 09:22] LABS: BASO % 0.4 % (0-2.0); EOS % 2.1 % (0-4.5); HEMATOCRIT 43.3 % (35.4-49); HEMOGLOBIN 14.3 GM/dL (11.7-16.9); LYMPH % 32.9 % (8-40); MCH 27.4 pg (25.7-33.7); MCHC 33.1 g/dl (32.0-35.9); MEAN CELL VOLUME 82.7 fl (80-96); MEAN PLT VOLUME 9.5 fl (7.5-11.1); MONO % 9.5 % (3.8-10.2); NEUT % 55.1 % (42.8-82.8); PLATELET COUNT 228 K/MM3 (134-434); RBC 5.23 M/mm3 (4.00-5.60); RDW 14.8 % (11.9-15.9); WHITE BLOOD COUNT 9.7 K/mm3 (4.0-10.0)
[2018-06-18 09:47] LABS: ALBUMIN 2.5 g/dl (3.4-5.0); ANION GAP 9 (8-16); BILIRUBIN,TOTAL 0.5 mg/dL (0.2-1.0); BLOOD UREA NITROGEN 11 mg/dL (7-18); CALCIUM 8.7 mg/dL (8.5-10.1); CHLORIDE 105 mmol/L (98-107); CO2 27 mmol/L (21-32); GLUCOSE,RANDOM 97 mg/dL (74-106); SGOT/AST 25 U/L (15-37); SGPT/ALT 20 U/L (12-78); SODIUM 141 mmol/L (136-145); TOT PROT 6.6 g/dl (6.4-8.2)
[2018-06-18 09:51] LABS: ALK PHOS 60 U/L (45-117)
--- NOTE | 2018-06-18 11:49 | EKG ---
Test Reason : Blood Pressure : / mmHG Vent. Rate : 054 BPM Atrial Rate : 054 BPM P-R Int : 240 ms QRS Dur : 150 ms QT Int : 486 ms P-R-T Axes : 059 -50 135 degrees QTc Int : 460 ms SINUS BRADYCARDIA WITH 1ST DEGREE A-V BLOCK LEFT AXIS DEVIATION LEFT BUNDLE BRANCH BLOCK ABNORMAL ECG WHEN COMPARED WITH ECG OF 02-NOV-2017 10:20, NO SIGNIFICANT CHANGE WAS FOUND Confirmed by KODI CHAN, LINNEA ([id number]) on 06/18/2018 11:49:17 AM Referred By: Confirmed By:LINNEA MARIEE MD
[2018-06-18] MEDS: HEPARIN NA (PORCINE) 5,000 UNITS/ML 1ML VIAL SQ SCH ×2 (12:11→23:00)
[2018-06-18] MEDS: CITALOPRAM HYDROBROMIDE 10 MG TABLET (FP) PO SCH (12:12)
[2018-06-18] MEDS: SOLIFENACIN SUCCINATE 5 MG TAB (FP) PO SCH (12:12)
--- NOTE | 2018-06-18 19:50 | PN ---
Physical Exam: SUBJECTIVE: Patient seen and examined in ED. present. Still waiting for floor bed. OBJECTIVE: Vital Signs Period Temp Pulse Resp BP Sys/Armendariz Pulse Ox Last 24 Hr 98 F-98.2 F 64-87 15-22 110-125/84-110 96-97 GENERAL: The patient is awake. He is nonverbal at baseline. Mildly agitated. LUNGS: Breath sounds equal, clear to auscultation HEART: Regular rate and rhythm, S1, S2 ABDOMEN: Soft, nontender, nondistended EXTREMITIES: 2+ pulses, warm, well-perfused, 1+ b/l edema NEUROLOGICAL: Cranial nerves II through XII grossly intact Laboratory Results - last 24 hr 06/18/18 06/18/18 09:10 09:10 WBC 9.7 RBC 5.23 Hgb 14.3 Hct 43.3 MCV 82.7 MCH 27.4 MCHC 33.1 RDW 14.8 Plt Count 228 D MPV 9.5 Absolute Neuts (auto) 5.3 Neutrophils % 55.1 Lymphocytes % 32.9 Monocytes % 9.5 Eosinophils % 2.1 Basophils % 0.4 Nucleated RBC % 0 Sodium 141 Potassium 4.0 Chloride 105 Carbon Dioxide 27 Anion Gap 9 BUN 11 Creatinine 1.0 Creat Clearance w eGFR > 60 Random Glucose 97 Calcium 8.7 Total Bilirubin 0.5 AST 25 ALT 20 Alkaline Phosphatase 60 Creatine Kinase 212 Creatine Kinase Index 1.9 CK-MB (CK-2) 4.12 H Troponin I 0.02 Total Protein 6.6 Albumin 2.5 L Active Medications Generic Name Dose Route Start Last Admin Trade Name Freq PRN Reason Stop Dose Admin Atorvastatin Calcium 10 mg 06/17/18 22:00 06/17/18 22:53 Lipitor - PO 10 mg HS KARY Administration Citalopram Hydrobromide 10 mg 06/18/18 10:00 06/18/18 12:12 Celexa - PO 10 mg DAILY KARY Administration Donepezil HCl 5 mg 06/18/18 22:00 Aricept - PO HS KARY Heparin Sodium (Porcine) 5,000 unit 06/17/18 22:00 06/18/18 12:11 Heparin - SQ 5,000 unit BID KARY Administration Solifenacin 5 mg 06/18/18 10:00 06/18/18 12:12 Vesicare - PO 5 mg DAILY KARY Administration ASSESSMENT/PLAN 87 year-old male with a PMH significant for HTN, HLD, prostate cancer (treated) , and dementia, placed on observation after an unwitnessed fall. Unwitnessed fall at home --CT head negative x 2 --imaging negative for fractures Possible syncopal episode --troponins neg x 2 --ECG sinus sara @ 54bpm with first degree block; hold beta blockers --telemetry monitoring --echo ordered --cardiology consult --afebrile, no leukocytosis, urine clear, CXR clear, no indication for infection Hypertension --was on atenolol 100mg at home, now on hold --normotensive Prostate cancer treated BPH --continue tamsulosin, oxybutynin Dementia --continue citalopram, donepezil DVT prophylaxis: subq heparin Visit type - Emergency Visit Emergency Visit: Yes ED Registration Date: 06/17/18 Care time: The patient presented to the Emergency Department on the above date and was hospitalized for further evaluation of their emergent condition. - New Patient This patient is new to me today: Yes Date on this admission: 06/18/18 - Critical Care Critical Care patient: No
[2018-06-18] MEDS ORDERED: DONEPEZIL HCL 5 MG TABLET (FP) PO SCH (22:00)
[2018-06-18] MEDS: ATORVASTATIN CA 10 MG TABLET (FP) PO SCH (23:00)
[2018-06-19] MEDS ORDERED: DONEPEZIL HCL 5 MG TABLET (FP) ONE (00:07)
[2018-06-19] MEDS ORDERED: ATORVASTATIN CA 10 MG TABLET (FP) ONE (00:07)
[2018-06-19] MEDS ORDERED: HEPARIN NA (PORCINE) 5,000 UNITS/ML 1ML VIAL ONE (00:08)
--- NOTE | 2018-06-19 09:11 | CON.CARD ---
Consult Consult Specialty:: Cardiology Referred by:: Hospitalist Reason for Consultation:: Fall possible syncope - History of Present Illness Chief Complaint: Fall at home History of Present Illness: 87 year old man with pmh HTN, HLD, Prostate Ca, Alzheimers dementia admitted 06/17 with an unwitnessed fall. as per report pts stated that he had fallen after slipping on spilled urine on the floor. pt had had a similar episode approx 3 months ago when he fell and yelled out to his and there was clearly no loss of consciousness. This episode was not as clear as pt was confused and had slurred speech after falling and was unable to recall what led to his falling. Pt was seen and examined today in [facility]. Pt not providing a history currently. he is awake and alert but not answering questions either in estonian or equatorial guinean. No reported chest pain, sob, palpitations, pnd, orthopnea, le edema, lightheadedness, or dizziness. - History Source History Provided By: Patient, Medical Record, Caregiver Limitations to Obtaining History: Poor Historian - Past Medical History Cardio/Vascular: Yes: HTN Renal/: Yes: BPH, Cancer (prostate) - Alcohol/Substance Use Hx Alcohol Use: No - Smoking History Smoking history: Never smoked Have you smoked in the past 12 months: No - Social History ADL: Support Services History of Recent Travel: No Home Medications - Allergies Allergies/Adverse Reactions: Allergies Allergy/AdvReac Type Severity Reaction Status Date / Time tetanus toxoid, adsorbed Allergy Verified 06/17/18 12:20 tetnus Allergy Unknown Uncoded 06/17/18 12:20 - Home Medications Home Medications: Ambulatory Orders Atorvastatin Ca [Lipitor] 10 mg PO HS 09/22/17 Tamsulosin HCl [Flomax] 0.4 mg PO DAILY 09/22/17 Atenolol [Tenormin -] 100 mg PO DAILY 11/02/17 Oxybutynin Chloride [Ditropan Xl] 5 mg PO DAILY 11/02/17 Donepezil HCl [Aricept] 5 mg PO DAILY #30 tab 11/03/17 Citalopram Hydrobromide [Citalopram HBr] 10 mg PO DAILY 06/17/18 Omeprazole 20 mg PO DAILY 06/17/18 Oxybutynin Chloride [Oxybutynin Chloride ER] 5 mg PO DAILY 06/17/18 Family Disease History - Family Disease History Family History: Unable to Obtain Review of Systems - Review of Systems Constitutional: reports: Weakness. denies: No Symptoms, Chills, Diaphoresis, Fever, Lethargy, Loss of Appetite, Malaise, Night Sweats, Unintentional Wgt. Loss, Other Eyes: denies: No Symptoms, Blind Spots, Blurred Vision, Double Vision, Eye Pain , Floaters, Photophobia, Recent Change in Vision, Other HENT: denies: No Symptoms, Difficult Swallowing, Ear Discharge, Ear Pain, Epistaxis, Gingival Bleeding, Hearing Loss, Mouth Swelling, Nasal Congestion, Ocular Prosthesis, Throat Pain, Toothache, Ringing in Ears, Other Neck: denies: No Symptoms, Decreased ROM, Lumps, Pain on Movement, Stiffness, Swollen Glands, Tenderness, Other Cardiovascular: denies: No Symptoms, Chest Pain, Edema, Palpitations, Shortness of Breath, Other Respiratory: denies: No Symptoms, Cough, Exercise Intolerance, Hemoptysis, Orthopnea, PND, Snoring, SOB, SOB on Exertion, Wheezing, Other Gastrointestinal: denies: No Symptoms, Abdominal Pain, Bloating, Constipation, Diarrhea, Dysphagia, Indigestion, Melena, Nausea, Rectal Bleeding, Vomiting, Vomiting Blood, Other Genitourinary: denies: No Symptoms, Burning, Discharge, Dysuria, Flank Pain, Frequency, Hematuria, Incontinence, Lesions, Menses, Pain, Testicular Mass, Testicular Pain, Testicular Swelling, Urgency, Vaginal Bleeding, Other Breasts: denies: No Symptoms Reported, See HPI, Breast Implants, Discharge from Nipple, Lumps, Pain, Skin Changes, Other Musculoskeletal: denies: No Symptoms, Back Pain, Crepitus, Decreased ROM, Extremity Pain, Joint Pain, Joint Swelling, Muscle Pain, Muscle Cramps, Muscle Weakness, Other Integumentary: denies: No Symptoms, Blister, Bruising, Change in Color, Eczema, Erythema, Incision, Lesions, Lump, Pallor, Pruritis, Rash, Wound, Other Neurological: reports: Unsteady Gait. denies: No Symptoms, Change in LOC, Change in Speech, Confusion, Dizziness, Headache, Incoordination, Numbness, Parasthesia, Pre-Existing Deficit, Seizure, Syncope, Tremors, Weakness, Other Endocrine: denies: No Symptoms, Excessive Sweating, Flushing, Increased Hunger, Increased Thirst, Intolerance to Cold, Intolerance to Heat, Unexplained Weight Gain, Unexplained Weight Loss, Other Hematology/Lymphatic: denies: No Symptoms, Easily Bruised, Excessive Bleeding, Swollen Glands, Other Psychiatric: denies: No Symptoms, Altered Sleep Pattern, Anxiety, Depression, Hallucinations, Panic, Paranoia, Suicidal, Other - Risk Factors Known Risk Factors: Yes: Age, Hypertension Vital Signs: Vital Signs Temperature 99.1 F 06/18/18 21:00 Pulse Rate 85 06/18/18 21:00 Respiratory Rate 18 06/18/18 22:00 Blood Pressure 145/80 06/18/18 21:00 O2 Sat by Pulse Oximetry (%) 96 06/18/18 22:00 Constitutional: Yes: No Distress, Calm Eyes: Yes: Conjunctiva Clear, EOM Intact HENT: Yes: Atraumatic, Normocephalic Neck: Yes: Supple, Trachea Midline Respiratory: Yes: Regular, CTA Bilaterally. No: Rales, Rhonchi, SOB, Wheezes Gastrointestinal: Yes: Normal Bowel Sounds, Soft. No: Distention, Tenderness Cardiovascular: Yes: Regular Rate and Rhythm. No: Bradycardia, Tachycardia, Pulse Irregular, Gallop, Rub, Varicosities JVD: No Carotid Bruit: No PMI: Non-Displaced Heart Sounds: Yes: S1, S2. No: Split S2, S3, S4, Clicks, Gallop, Rub, Bruit Murmur: No: Systolic Murmur, Diastolic Murmur Musculoskeletal: Yes: Muscle Weakness Extremities: Yes: WNL Edema: No Peripheral Pulses WNL: Yes Peripheral Pulses: 2+ Left Doralis Pedis, 2+ Right Dorsalis Pedis Neurological: Yes: Alert. No: Oriented Psychiatric: Yes: Alert. No: Oriented - Other Data Labs, Other Data: CBC, BMP 06/18/18 09:10 06/18/18 09:10 INR, PTT INR 1.12 (0.83-1.09) H 06/17/18 13:05 Troponin, BNP 06/18/18 09:10 Troponin I 0.02 Troponin, BNP 06/18/18 09:10 Troponin I 0.02 ekg-sinus sara 54bpm with 1st deg AVB and LBBB, no significant change from EKG 10/2017 Imaging - Results Chest X-ray: Report Reviewed, Image Reviewed EKG: Report Reviewed, Image Reviewed Other: Report Reviewed, Image Reviewed Assessment/Plan 87 year old man with pmh HTN, HLD, Prostate Ca, Alzheimers dementia admitted 06/17 with an unwitnessed fall. as per report pts stated that he had fallen after slipping on spilled urine on the floor. pt had had a similar episode approx 3 months ago when he fell and yelled out to his and there was clearly no loss of consciousness. This episode was not as clear as pt was confused and had slurred speech after falling and was unable to recall what led to his falling. Pt was seen and examined today in [facility]. Pt not providing a history currently. he is awake and alert but not answering questions either in estonian or equatorial guinean. No reported chest pain, sob, palpitations, pnd, orthopnea, le edema, lightheadedness, or dizziness. Fall-no clear syncope, denied by report from pts -pt does have an abnormal ekg with 1st deg AVB and LBBB but has no sign of higher degree heart block since admission -no significant valvular heart disease on exam -fup echo ordered for today to confirm no significant structural heart disease -if echo wnl pt would be acceptable for discharge from a cardiac standpoint with plan for outpatient fup and likely extended event monitor to further evaluate for higher degree heart block or other arrhythmias -cardiac enzymes wnl -no reported chest pain, sob, palpitations -agree with stopping bblocker given evidence of conduction disease on EKG, if anti-htn meds are needed would avoid AV noah blockers
[2018-06-19] MEDS: HEPARIN NA (PORCINE) 5,000 UNITS/ML 1ML VIAL SQ SCH (09:38)
[2018-06-19] MEDS: SOLIFENACIN SUCCINATE 5 MG TAB (FP) PO SCH (09:39)
[2018-06-19] MEDS: CITALOPRAM HYDROBROMIDE 10 MG TABLET (FP) PO SCH (09:39)
[2018-06-19 10:25] VITALS: BP 144/74; PULSE 60; TEMP 98.9
--- NOTE | 2018-06-19 15:29 | ECHO ---
Name: LAVERNE TOLEDO Exam:Adult Echocardiogram Study Date: 06/19/2018 10:07 AM Age: 87 yrs Reason For Study: SYNCOPE Height: 69 in Weight: 150 lb BSA: 1.8 m2 MMode/2D Measurements & Calculations IVSd: 1.1 cm Ao root diam: 3.3 cm LVIDd: 2.8 cm LA dimension: 2.3 cm LVIDs: 1.9 cm LVPWd: 1.0 cm EDV(Teich): 28.5 ml ESV(Teich): 11.4 ml Doppler Measurements & Calculations MV E max fuad: 50.0 cm/sec AI P1/2t: 657.8 msec MV A max fuad: 95.1 cm/sec MV E/A: 0.53 MV dec time: 0.27 sec AI max fuad: 297.3 cm/sec AI max P.4 mmHg AI dec slope: 132.4 cm/sec2 Procedure A complete two-dimensional transthoracic echocardiogram was performed (2D, M-mode, Doppler and color flow Doppler). The study was technically difficult with many images being suboptimal in quality. Left Ventricle The left ventricular size, thickness and function are normal. Ejection Fraction = 60%. E/A reversal c onsistent with but not diagnostic of poor LV compliance. Right Ventricle The right ventricle is normal in size and function. Atria Normal left and right atrial size and function. Mitral Valve The mitral valve is normal. There is no mitral regurgitation noted. Tricuspid Valve The tricuspid valve is not well visualized, but is grossly normal. There is trace tricuspid regurgita tion. There was insufficient TR detected to calculate RV systolic pressure. Aortic Valve There is mild to moderate aortic sclerosis.;. No aortic regurgitation is present. Pulmonic Valve The pulmonic valve is not well seen, but is grossly normal. Great Vessels The aortic root is normal size. Normal aortic arch, descending and ascending aorta. Interpretation Summary The left ventricular size, thickness and function are normal Ejection Fraction = 60%. E/A reversal consistent with but not diagnostic of poor LV compliance The right ventricle is normal in size and function. Normal left and right atrial size and function. The mitral valve is normal. There is trace tricuspid regurgitation. There was insufficient TR detected to calculate RV systolic pressure. There is mild to moderate aortic sclerosis.; MD Romeo Holt 06/19/2018 03:29 PM
--- NOTE | 2018-06-19 16:45 | DS ---
Physical Examination Vital Signs: Vital Signs Temperature 98.9 F 06/19/18 09:00 Pulse Rate 60 06/19/18 09:00 Respiratory Rate 18 06/19/18 09:00 Blood Pressure 144/74 06/19/18 09:00 O2 Sat by Pulse Oximetry (%) 97 06/19/18 09:00 Labs: CBC, BMP 06/18/18 09:10 06/18/18 09:10 Discharge Summary Reason For Visit: FALL Current Active Problems Fall (Acute) Hospital Course: The family has requested additional aids for the patient, especially for the night time as he tends to get up on his own. Condition: Improved - Instructions Diet, Activity, Other Instructions: Please return to the ED with new, persistent, or worsening symptoms. Please follow-up with providers as indicated. STOP taking your Atenolol. You must follow-up with cardiology within 2-3 days for further cardiac evaluation to discuss an extended event monitor. Referrals: Luis Alfredo Sy MD [Staff Physician] - 1 Week Ayan Ledesma MD [Staff Physician] - (Please follow-up with cardiology within 2-3 days for further cardiac evaluation ) ON STAFF,NOT [Primary Care Provider] - Disposition: HOME - Home Medications Comprehensive Discharge Medication List: Ambulatory Orders Atorvastatin Ca [Lipitor] 10 mg PO HS 09/22/17 Tamsulosin HCl [Flomax] 0.4 mg PO DAILY 09/22/17 Donepezil HCl [Aricept] 5 mg PO DAILY #30 tab 11/03/17 Citalopram Hydrobromide [Citalopram HBr] 10 mg PO DAILY 06/17/18 Omeprazole 20 mg PO DAILY 06/17/18 Oxybutynin Chloride [Oxybutynin Chloride ER] 5 mg PO DAILY 06/17/18 Walker [Ultra-Light Rollator] 1 each ASDIR #1 each 06/19/18
== END 2018-06-19 16:50 | disposition home or self-care (01) ==
LOC: JER 11:57 → JERBED 15:05
PROVIDERS: ADMIT Internal Medicine; ATTEND Registered Nurse
PROC: 3E023GC Introduction of Other Therapeutic Substance into Muscle, Percutaneous Approach (ICD-10-PCS; principal; 2018-06-17)
PROC: 3E013GC Introduction of Other Therapeutic Substance into Subcutaneous Tissue, Percutaneous Approach (ICD-10-PCS; 2018-06-17)
DX: Z91.81 History of falling (principal); I10 Essential (primary) hypertension; E78.5 Hyperlipidemia, unspecified; G30.9 Alzheimer's disease, unspecified; F02.80 Dementia in other diseases classified elsewhere, unspecified severity, without behavioral disturbance, psychotic disturbance, mood disturbance, and anxiety; E11.9 Type 2 diabetes mellitus without complications; I44.0 Atrioventricular block, first degree; I44.7 Left bundle-branch block, unspecified; R00.1 Bradycardia, unspecified; N40.0 Benign prostatic hyperplasia without lower urinary tract symptoms; Z85.46 Personal history of malignant neoplasm of prostate; W01.0XXA Fall on same level from slipping, tripping and stumbling without subsequent striking against object, initial encounter; Y93.89 Activity, other specified; Y92.002 Bathroom of unspecified non-institutional (private) residence as the place of occurrence of the external cause
CPT/HCPCS: 36415; 70450-TC; 71045-TC-FY; 72125-TC; 72170-TC-FY; 80053; 81003; 82550; 82553; 84484; 85025; 85610; 87086; 93005; 93010; 93306-TC; 96372; 97116-GP; 97161-GP; 99285-25; G0378; J1644

== ENCOUNTER 2018-08-06 14:30 | Emergency (ER) | payer OTHER ==
[2018-08-06 14:47] VITALS: PULSE 64; BMI 22.1
--- NOTE | 2018-08-06 15:44 | PDOC ---
History of Present Illness - General Chief Complaint: Syncope/Near Syncope Stated Complaint: Syncope/Near Syncope Time Seen by Provider: 08/06/18 14:56 History Source: Spouse, Old Records Exam Limitations: Dementia, Language Barrier (Pt and Nepali speaking only. Requested to use member of staff translate.) - History of Present Illness Initial Comments: 87 y/o male presenting to [facility] ER via ambulance after resolved episode of change in mental status. Pt has a h/o advanced Alzheimers dementia and unable to answer questions. reports the two were shopping when her suddenly complained of chills and weakness. She directed him to sit down in a chair. Pt then lowered his head and stopped talking for approx. 20 minutes. Denies loss of muscle tone, tonic-clonic activity, or fall. Episode resolved prior to EMS arrival. Pt was able to walk to the EMS stretcher. Admitted here on 06/17/2018 for unwitnessed fall. PCP: Diamond Adkins Hx: - HTN - HLD - Prostate Cancer - Alzheimer's Dementia Past History - Past Medical History Allergies/Adverse Reactions: Allergies Allergy/AdvReac Type Severity Reaction Status Date / Time tetanus toxoid, adsorbed Allergy Verified 08/06/18 14:47 tetnus Allergy Unknown Uncoded 08/06/18 14:47 Home Medications: Ambulatory Orders Atorvastatin Ca [Lipitor] 10 mg PO HS 09/22/17 Tamsulosin HCl [Flomax] 0.4 mg PO DAILY 09/22/17 Donepezil HCl [Aricept] 5 mg PO DAILY #30 tab 11/03/17 Citalopram Hydrobromide [Citalopram HBr] 10 mg PO DAILY 06/17/18 Omeprazole 20 mg PO DAILY 06/17/18 Oxybutynin Chloride [Oxybutynin Chloride ER] 5 mg PO DAILY 06/17/18 Walker [Ultra-Light Rollator] 1 each ASDIR #1 each 06/19/18 COPD: No Dementia: Yes Diabetes: Yes (ALZHEIMERS.) Disorders: Yes (prostate ca) HTN: Yes Hypercholesterolemia: Yes - Surgical History Abdominal Surgery: Yes (HERNIA) - Immunization History Immunization Up to Date: Yes - Suicide/Smoking/Psychosocial Hx Smoking History: Never smoked Have you smoked in the past 12 months: No Hx Alcohol Use: No Drug/Substance Use Hx: No Substance Use Type: None Review of Systems - Review of Systems Able to Perform ROS?: No Comments:: Pt demented and unreliable at baseline. *Physical Exam - Vital Signs Last Vital Signs Temp Pulse Resp BP Pulse Ox 98.3 F 64 18 131/78 97 08/06/18 19:06 08/06/18 14:44 08/06/18 14:44 08/06/18 19:06 08/06/18 19:06 - Physical Exam Comments: Constitutional: Well-developed, well-nourished male in no acute distress or obvious discomfort. Found semi-fowlers in hospital bed. Alert and oriented x1, baseline per . Speech was non-pressured and nonsensical phrases. HEENT: Normocephalic. No obvious external signs of trauma. Hearing grossly normal. No nasal discharge. Neck is supple, trachea is midline. Cardiovascular: Regular rate and regular rhythm. No murmur, rubs, clicks, or gallops. Peripheral pulses: Radial pulses full. Respiratory: Breathing unlabored. Equal chest rise and fall. Clear to auscultation bilaterally. No stridor, no wheezing, no rhonchi. Gastrointestinal: abdomen is soft, non-tender, non-distended. Neuro: Alert and oriented. Moving all four extremities spontaneously.Intact sensation to all four extremities. Upper and lower extremity: proximal and distal strength 5/5, steel loader strength 5/5 - equal and symmetric. Plantar flexion and dorsiflexion 5/5. Skin: Warm, dry, and intact. No bruising, rashes, or other lesions. Psych: Affect: appropriate. Mood: normal. ED Treatment Course - LABORATORY CBC & Chemistry Diagram: 08/06/18 16:12 08/06/18 16:12 - ADDITIONAL ORDERS Additional order review: 08/06/18 17:51 Urine Culture - Final Urine - Urine Clean Catch Contaminated: Please Repeat 08/06/18 16:12 RBC 5.27 MCV 82.8 MCHC 32.5 RDW 14.8 MPV 9.4 Neutrophils % 82.9 H D Lymphocytes % 10.4 D Monocytes % 5.5 Eosinophils % 0.8 Basophils % 0.4 - RADIOLOGY Radiology Studies Ordered: Category Date Time Status CHEST PA & LAT [RAD] Stat Radiology 08/06/18 15:45 Completed Medical Decision Making - Medical Decision Making *Reviewed vital signs, nursing notes, and prior visit documentation (if available). 87 y/o demented male presenting s/p vague transient change in mental status. No complaints on arrival. Pt at baseline per . Afebrile. Vitals unremarkable. Physical exam benign. D/D: behavioral, medication side effect, UTI, TIA, ACS, arrhythmia, anemia, metabolic derangement, hyperthyroidism, hypothyroidism. Will obtain CBC, CMP, TSH, Troponin, EKG, UA, urine culture, and CXR. EKG: Sinus rhythm with a ventricular rate of 62bpm. Left [place] deviation. First degree AV block. QTc <500. Left bundle branch block. No ST segment elevation or depression. Does not meet Sgarbossa criteria. CXR: No acute cardiopulmonary process. Compared to prior study dated 06/17/2018. CBC unremarkable for anemia. Mild leukocytosis, low suspicion for infectious cause without other clinical signs. CMP unremarkable for electrolyte derangement. LFTs not elevated. TSH within normal limits. Low suspicion for hyper or hypothyroid etiology. UA unremarkable for pyuria, leukocyte esterase, or nitrites. Low suspicion for UTI. Culture pending. Repeat physical exam remains benign. No subsequent episodes observed in the department. Workup reassuring. Attending discharged the pt from the department. *DC/Admit/Observation/Transfer Diagnosis at time of Disposition: Near syncope - Discharge Dispostion Disposition: HOME Condition at time of disposition: Good Decision to Admit order: No - Referrals Referrals: Elise Fields MD [Primary Care Provider] - - Patient Instructions Printed Discharge Instructions: DI for Syncope in Adults (Fainting) Additional Instructions: El anlisis de lupis de boyle esposo, la radiografa de trax y el electrocardiograma fueron normales massiel. He adjuntado los resultados a aurea paquete. Belén un seguimiento con el mdico de atencin primaria de boyle esposo dentro de los prximos 3-4 carroll. Tendr que llamar para hacer lobo tyrone. El nmero est incluido en aurea paquete. Lleve aurea paquete a la tyrone para que boyle mdico pueda latesha los resultados de la visita de massiel. Vaya al departamento de emergencias ms cercano si boyle condicin empeora o si siente que necesita lobo evaluacin de emergencia adicional. Print Language: KYRGYZ - Post Discharge Activity
[2018-08-06 16:37] LABS: BASO % 0.4 % (0-2.0); EOS % 0.8 % (0-4.5); HEMATOCRIT 43.6 % (35.4-49); HEMOGLOBIN 14.2 GM/dL (11.7-16.9); LYMPH % 10.4 % (8-40); MCH 26.9 pg (25.7-33.7); MCHC 32.5 g/dl (32.0-35.9); MEAN CELL VOLUME 82.8 fl (80-96); MEAN PLT VOLUME 9.4 fl (7.5-11.1); MONO % 5.5 % (3.8-10.2); NEUT % 82.9 % (42.8-82.8); PLATELET COUNT 252 K/MM3 (134-434); RBC 5.27 M/mm3 (4.00-5.60); RDW 14.8 % (11.9-15.9); WHITE BLOOD COUNT 12.8 K/mm3 (4.0-10.0)
[2018-08-06 17:30] LABS: ALBUMIN 2.3 g/dl (3.4-5.0); ALK PHOS 73 U/L (45-117); ANION GAP 9 MMOL/L (8-16); BILIRUBIN,TOTAL 0.4 mg/dL (0.2-1); BLOOD UREA NITROGEN 19 mg/dL (7-18); CALCIUM 8.8 mg/dL (8.5-10.1); CHLORIDE 107 mmol/L (98-107); CO2 28 mmol/L (21-32); CREATININE 1.1 mg/dL (0.55-1.3); GLUCOSE,RANDOM 100 mg/dL (74-106); POTASSIUM 4.6 mmol/L (3.5-5.1); SGOT/AST 25 U/L (15-37); SGPT/ALT 18 U/L (13-61); SODIUM 144 mmol/L (136-145); TOT PROT 6.6 g/dl (6.4-8.2)
[2018-08-06 18:08] LABS: URINE APPEARANCE CLEAR; URINE BILIRUBIN NEGATIVE (<2.0 mg/dL); URINE COLOR YELLOW; URINE GLUCOSE (UA) NEGATIVE (NEGATIVE); URINE KETONE NEGATIVE (NEGATIVE); URINE LEUK ESTERASE NEGATIVE (NEGATIVE); URINE NITRITE NEGATIVE (NEGATIVE); URINE PROTEIN NEGATIVE (NEGATIVE); URINE UROBILINOGEN NEGATIVE mg/dL (0.2-1.0)
[2018-08-06 19:11] VITALS: BP 131/78; TEMP 98.3
--- NOTE | 2018-08-06 19:15 | PDOC ---
Attending Attestation - Resident Resident Name: Roman Santos - ED Attending Attestation I have performed the following: I have examined & evaluated the patient, The case was reviewed & discussed with the resident, I agree w/resident's findings & plan, Exceptions are as noted - HPI HPI: 08/06/18 19:14 87 yo male felt weak for about 20 minutes while out shopping - Physicial Exam PE: 08/06/18 19:14 wnwd 87 yo male head ncat eyes xiomara eomi neck supple lungs cta b/l cvs [id number] abd nontender extremities no deformity skin warm and dry neuro alert and ambulatory but very poor historian - Medical Decision Making 08/06/18 19:15 pt has h/o dementia his PCP in [facility] labs reviewed unremarkable ekg no sign of ischemia had recent echo in June showed EF of 60% pt discharged home
--- NOTE | 2018-08-07 10:56 | EKG ---
Test Reason : Blood Pressure : / mmHG Vent. Rate : 062 BPM Atrial Rate : 062 BPM P-R Int : 210 ms QRS Dur : 158 ms QT Int : 476 ms P-R-T Axes : 053 -64 109 degrees QTc Int : 483 ms SINUS RHYTHM WITH 1ST DEGREE A-V BLOCK LEFT AXIS DEVIATION LEFT BUNDLE BRANCH BLOCK ABNORMAL ECG Confirmed by MD ANDREW, GEOR[place] ([id number]) on 08/07/2018 10:55:58 AM Referred By: Confirmed By:GEORGIA MORALES MD
== END 2018-08-06 19:20 | disposition home or self-care (01) ==
LOC: JER 14:30
DX: R55 Syncope and collapse (principal); I10 Essential (primary) hypertension; E78.00 Pure hypercholesterolemia, unspecified; G30.9 Alzheimer's disease, unspecified; F02.80 Dementia in other diseases classified elsewhere, unspecified severity, without behavioral disturbance, psychotic disturbance, mood disturbance, and anxiety; F10.21 Alcohol dependence, in remission; Z85.46 Personal history of malignant neoplasm of prostate; R26.89 Other abnormalities of gait and mobility; Z99.89 Dependence on other enabling machines and devices
CPT/HCPCS: 36415; 71046-TC-FY; 80053; 81003; 84443; 84484; 85025; 87086; 93005; 93010; 99283-25

== ENCOUNTER 2018-09-20 11:18 | Emergency (ER) | payer OTHER ==
[2018-09-20 12:08] VITALS: BP 168/98; PULSE 95; BMI 21.9
--- NOTE | 2018-09-20 12:16 | PDOC ---
History of Present Illness - General Stated Complaint: Nausea/Vomiting Time Seen by Provider: 09/20/18 12:15 History Source: Patient, Care Provider, Family Exam Limitations: No Limitations, Dementia - History of Present Illness Initial Comments: 09/20/18 12:39 This is a 87 year old male with a history of HTN, HLD, prostate ca,dementia, who presents with nausea, vomiting, and reported fever and chills at home for the past three days. Given dementia, and rn home care here giving history. Family denies, cough, sputum production, diarrhea, or urinary symptoms. PMHx: HTN. HLD, bradycardia (medication induced), 1st degree AV block PSHx: TURP Social hx: denies smoking or alcohol history, lives with ; has rn home care Allergies: tetanus Past History - Past Medical History Allergies/Adverse Reactions: Allergies Allergy/AdvReac Type Severity Reaction Status Date / Time tetanus toxoid, adsorbed Allergy Verified 08/06/18 14:47 tetnus Allergy Unknown Uncoded 08/06/18 14:47 Home Medications: Ambulatory Orders Atorvastatin Ca [Lipitor] 10 mg PO HS 09/22/17 Tamsulosin HCl [Flomax] 0.4 mg PO DAILY 09/22/17 Donepezil HCl [Aricept] 5 mg PO DAILY #30 tab 11/03/17 Citalopram Hydrobromide [Citalopram HBr] 10 mg PO DAILY 06/17/18 Omeprazole 20 mg PO DAILY 06/17/18 Oxybutynin Chloride [Oxybutynin Chloride ER] 5 mg PO DAILY 06/17/18 Walker [Ultra-Light Rollator] 1 each ASDIR #1 each 06/19/18 COPD: No Dementia: Yes Diabetes: Yes (ALZHEIMERS.) Disorders: Yes (prostate ca) HTN: Yes Hypercholesterolemia: Yes - Surgical History Abdominal Surgery: Yes (HERNIA) - Immunization History Immunization Up to Date: Yes - Suicide/Smoking/Psychosocial Hx Smoking History: Never smoked Have you smoked in the past 12 months: No Hx Alcohol Use: No Drug/Substance Use Hx: No Substance Use Type: None Review of Systems - Review of Systems Able to Perform ROS?: No (with dementia; ) *Physical Exam - Vital Signs Last Vital Signs Temp Pulse Resp BP Pulse Ox 98.5 F 95 H 18 168/98 98 09/20/18 11:25 09/20/18 11:25 09/20/18 11:25 09/20/18 11:25 09/20/18 11:25 - Physical Exam General Appearance: Yes: Appropriately Dressed, Thin HEENT: positive: Normal Voice, Pharynx Normal, Other (dry mucus membranes) Respiratory/Chest: positive: Decreased Breath Sounds. negative: Crackles, Wheezing Cardiovascular: positive: Regular Rhythm, Regular Rate, S1, S2 Vascular Pulses: Carotid (R): 2+, Carotid (L): 2+, Dorsalis-Pedis (R): 2+, Doralis-Pedis (L): 2+ Gastrointestinal/Abdominal: positive: Normal Bowel Sounds, Soft Musculoskeletal: negative: CVA Tenderness, Vertebral Tenderness Extremity: positive: Normal Inspection, Swelling (trace LLE edema) Integumentary: positive: Warm Neurologic: positive: Confused (at baseline). negative: Facial Droop, Sensory Deficit ED Treatment Course - LABORATORY CBC & Chemistry Diagram: 09/20/18 14:05 09/20/18 14:05 Medical Decision Making - Medical Decision Making 09/20/18 12:48 This is a 87 year old male with a history of HTN , HLD, dementia, who presents with n,v, poor oral intake at home fever and chills reported by . Tachycardic on upon admission. Will work up for acute infectious process. #N/V/F -cbc, cmp, mg -UA, UC -CXR -ekg -IVF -NS 09/20/18 15:09 -cxr negative; no leucytosis; afebrile -with abdominal tenderness; -abdomen/pelvic CT with contrast to rule out abdominal/gentiourinary pathology 09/20/18 18:46 -CT abdomen without acute infectious pathology. Positive for diverticulosis. -will dc home, advise increased oral intake, hydration. Most likely viral syndrome. Follow up with primary, return to ER for worsening symptoms. *DC/Admit/Observation/Transfer Diagnosis at time of Disposition: Acute viral syndrome - Discharge Dispostion Disposition: HOME Condition at time of disposition: Improved Decision to Admit order: No - Referrals Referrals: Elise Fields MD [Primary Care Provider] - - Patient Instructions Additional Instructions: virgilio Song lobo infection viral. Najma ana y come yair. Usa Tylenol para fiebre. Necesita ir a boyle doctor primario para un follow up. Regrasar si anna symptomas esta peor. - Post Discharge Activity
[2018-09-20] MEDS ORDERED: ACETAMINOPHEN 1000 MG/100 ML VIAL (NON FORMULARY) IVPB ONE (12:32)
[2018-09-20] MEDS ORDERED: SODIUM CHLORIDE 0.9% 500 ML INFUS.BAG IV ONE (12:32)
[2018-09-20] MEDS ORDERED: ONDANSETRON 4 MG/2 ML VIAL IVPB ONE (12:38)
--- NOTE | 2018-09-20 12:43 | PDOC ---
Attending Attestation - Resident Resident Name: Sandy Amador - ED Attending Attestation I have performed the following: I have examined & evaluated the patient, The case was reviewed & discussed with the resident, I agree w/resident's findings & plan, Exceptions are as noted - HPI HPI: 09/20/18 14:40 Reviewed Residents note - Physicial Exam PE: 09/20/18 14:40 Reviewed residents PE - Medical Decision Making 09/20/18 16:27 87 years old with markedly dementia presents with nausea vomiting Well-appearing no apparent distress no fever no elevated white blood cell count some diffuse nonspecific abdominal tenderness on examination Given limited history from patient will perform CT abdomen pelvis by mouth challenge Dr. domingo to follow-up results and dispel patient.
[2018-09-20] MEDS ORDERED: ONDANSETRON 4 MG/2 ML VIAL ONE (14:00)
[2018-09-20] MEDS ORDERED: ACETAMINOPHEN INJECTION 100 ML IVPB ONE (14:00)
[2018-09-20 14:12] VITALS: TEMP 98.2
[2018-09-20 14:15] LABS: BASO % 0.4 % (0-2.0); EOS % 1.8 % (0-4.5); HEMATOCRIT 39.6 % (35.4-49); LYMPH % 23.1 % (8-40); MCHC 32.8 g/dl (32.0-35.9); MEAN CELL VOLUME 82.4 fl (80-96); MONO % 8.6 % (3.8-10.2); NEUT % 66.1 % (42.8-82.8); PLATELET COUNT 247 K/MM3 (134-434); RBC 4.81 M/mm3 (4.00-5.60); RDW 15.2 % (11.9-15.9); WHITE BLOOD COUNT 8.2 K/mm3 (4.0-10.0)
[2018-09-20 14:18] LABS: URINE APPEARANCE CLEAR; URINE BILIRUBIN NEGATIVE (<2.0 mg/dL); URINE COLOR YELLOW; URINE GLUCOSE (UA) NEGATIVE (NEGATIVE); URINE KETONE NEGATIVE (NEGATIVE); URINE LEUK ESTERASE NEGATIVE (NEGATIVE); URINE NITRITE NEGATIVE (NEGATIVE); URINE PROTEIN NEGATIVE (NEGATIVE); URINE UROBILINOGEN NEGATIVE mg/dL (0.2-1.0)
[2018-09-20 14:49] LABS: ALBUMIN 2.2 g/dl (3.4-5.0); ALK PHOS 65 U/L (45-117); ANION GAP 7 MMOL/L (8-16); BILIRUBIN,TOTAL 0.2 mg/dL (0.2-1); BLOOD UREA NITROGEN 22 mg/dL (7-18); CALCIUM 8.2 mg/dL (8.5-10.1); CHLORIDE 107 mmol/L (98-107); CO2 28 mmol/L (21-32); CREATININE 1.1 mg/dL (0.55-1.3); GLUCOSE,RANDOM 76 mg/dL (74-106); MAGNESIUM 2.1 mg/dL (1.8-2.4); SGOT/AST 18 U/L (15-37); SGPT/ALT 13 U/L (13-61); SODIUM 143 mmol/L (136-145); TOT PROT 6.2 g/dl (6.4-8.2)
[2018-09-20] MEDS ORDERED: LORazepam 2 MG/ML SDV VIAL ONE ×2 (16:47→17:13)
--- NOTE | 2018-09-21 10:44 | EKG ---
Test Reason : Blood Pressure : / mmHG Vent. Rate : 062 BPM Atrial Rate : 062 BPM P-R Int : 230 ms QRS Dur : 152 ms QT Int : 508 ms P-R-T Axes : 049 -60 111 degrees QTc Int : 515 ms SINUS RHYTHM WITH 1ST DEGREE A-V BLOCK LEFT BUNDLE BRANCH BLOCK LEFT ANTERIOR HEMIBLOCK LEFT VENTRICULAR HYPERTROPHY WITH QRS WIDENING AND REPOLARIZATION ABNORMALITY NONSPECIFIC ST ABNORMALITY ABNORMAL ECG Confirmed by ERIKA HERNANDEZ MD ([id number]) on 09/21/2018 10:44:19 AM Referred By: Confirmed By:ERIKA HERNANDEZ MD
== END 2018-09-20 19:02 | disposition home or self-care (01) ==
LOC: JER 11:18
PROC: 3E033NZ Introduction of Analgesics, Hypnotics, Sedatives into Peripheral Vein, Percutaneous Approach (ICD-10-PCS; principal; 2018-09-20)
PROC: 3E033NZ Introduction of Analgesics, Hypnotics, Sedatives into Peripheral Vein, Percutaneous Approach (ICD-10-PCS; 2018-09-20)
PROC: 3E033NZ Introduction of Analgesics, Hypnotics, Sedatives into Peripheral Vein, Percutaneous Approach (ICD-10-PCS; 2018-09-20)
PROC: 3E033GC Introduction of Other Therapeutic Substance into Peripheral Vein, Percutaneous Approach (ICD-10-PCS; 2018-09-20)
DX: B34.9 Viral infection, unspecified (principal); I10 Essential (primary) hypertension; E78.5 Hyperlipidemia, unspecified; E78.00 Pure hypercholesterolemia, unspecified; G30.8 Other Alzheimer's disease; F02.80 Dementia in other diseases classified elsewhere, unspecified severity, without behavioral disturbance, psychotic disturbance, mood disturbance, and anxiety; Z85.46 Personal history of malignant neoplasm of prostate
CPT/HCPCS: 36415; 71045-TC-FY; 74177-TC; 80053; 81003; 83735; 85025; 87086; 87804; 93005; 93010; 99281-25; J0131

== ENCOUNTER 2019-11-30 12:28 | Emergency (ER) | payer OTHER ==
[2019-11-30 13:35] VITALS: TEMP 97.6; BMI 20.7
[2019-11-30] MEDS ORDERED: KETAMINE HCL 200 MG/20 ML VIAL IVPUSH ONE ×2 (13:47→13:48)
--- NOTE | 2019-11-30 13:47 | PDOC ---
History of Present Illness - General Chief Complaint: Injury Stated Complaint: FALL Time Seen by Provider: 11/30/19 12:32 History Source: Patient Exam Limitations: No Limitations - History of Present Illness Initial Comments: 11/30/19 13:45 Trenton Velez is an 88M with H Alzheimer's dementia presenting with fall from bed. Patient is demented at baseline and is not meaningfully verbal, history obtained from home health aide and at bedside. reports last night she went to bathroom and heard a noise, came out to find that patient was on the floor and had fallen out of bed. Patient was awake and did not lose consciousness, on ground for 5 minutes before called daughter to help bring him back into bed. Patient had bruising to right face and was complaining of some arm pain at that time but was has not acted any differently from baseline. Waited until home health aide arrived this morning to help bring patient to ED for evaluation. Baseline mental status is confusion and agitation, limited leg strength and not able to ambulate well, usually spends time in bed. No other cardiac or pulmonary history. Makes a lot of urine but this is a chronic issue. Past History - Past Medical History Allergies/Adverse Reactions: Allergies Allergy/AdvReac Type Severity Reaction Status Date / Time tetanus toxoid, adsorbed Allergy Verified 08/06/18 14:47 tetnus Allergy Unknown Uncoded 08/06/18 14:47 Home Medications: Ambulatory Orders Atorvastatin Ca [Lipitor] 10 mg PO HS 09/22/17 Tamsulosin HCl [Flomax] 0.4 mg PO DAILY 09/22/17 Donepezil HCl [Aricept] 5 mg PO DAILY #30 tab 11/03/17 Citalopram Hydrobromide [Citalopram HBr] 10 mg PO DAILY 06/17/18 Omeprazole 20 mg PO DAILY 06/17/18 Oxybutynin Chloride [Oxybutynin Chloride ER] 5 mg PO DAILY 06/17/18 Walker [Ultra-Light Rollator] 1 each ASDIR #1 each 06/19/18 COPD: No Dementia: Yes Diabetes: Yes (ALZHEIMERS.) Disorders: Yes (prostate ca) HTN: Yes Hypercholesterolemia: Yes - Surgical History Abdominal Surgery: Yes (HERNIA) - Immunization History Immunization Up to Date: Yes - Psycho Social/Smoking Cessation Hx Smoking History: Unknown if ever smoked Have you smoked in the past 12 months: No Hx Alcohol Use: No Drug/Substance Use Hx: No Substance Use Type: None Review of Systems - Review of Systems Able to Perform ROS?: No (dementia, non-verbal) *Physical Exam - Vital Signs Last Vital Signs Temp Pulse Resp BP Pulse Ox 97.6 F 114 H 18 160/118 H 97 11/30/19 12:40 11/30/19 12:40 11/30/19 12:40 11/30/19 12:40 11/30/19 12:40 - Physical Exam General Appearance: Yes: Nourished, Appropriately Dressed, Mild Distress, Other (resting comfortably in bed, becomes agitated with attempts to move or lay down) HEENT: positive: EOMI, MAURO, Normal Voice, Symmetrical, Pharynx Normal, Other ( red ecchymosis to R periorbital region without facial bone tenderness). negative: Pale Conjunctivae, Scleral Icterus (R), Scleral Icterus (L) Neck: positive: Trachea midline. negative: Tender, Rigid, Supple, Decreased range of motion, Lymphadenopathy (R), Lymphadenopathy (L), Tender lateral Respiratory/Chest: positive: Lungs Clear, Normal Breath Sounds, Respiratory Distress. negative: Chest Tender, Accessory Muscle Use, Crackles, Rales, Rhonchi, Wheezing Cardiovascular: positive: Regular Rhythm, Regular Rate. negative: Edema, Murmur Gastrointestinal/Abdominal: positive: Normal Bowel Sounds, Flat, Soft. negative : Tender, Organomegaly, Pulsatile Mass Musculoskeletal: positive: Normal Inspection. negative: CVA Tenderness, Decreased Range of Motion, Vertebral Tenderness Extremity: positive: Normal Capillary Refill, Normal Inspection, Normal Range of Motion, Pelvis Stable, Other. negative: Tender, Coldness, Cyanosis, Calf Tenderness (moving all extremities with great strength and full ROM, no bony deformities or ecchymoses noted) Integumentary: positive: Normal Color, Dry, Warm Neurologic: positive: Alert (responds to pain, attacks anyone who tries to reposition) ED Treatment Course - RADIOLOGY Radiology Studies Ordered: Category Date Time Status CERVICAL SPINE CT W/O CONTR [CT] Stat CT Scan 11/30/19 13:[address] W/O CONTRAST [CT] Stat CT Scan 11/30/19 13:[address] WITHOUT CONTRAST [CT] Stat CT Scan 11/30/19 13:13 Ordered Medical Decision Making - Medical Decision Making 11/30/19 13:30 Patient has history of Alzheimers and presents with mechanical fall without LOC or changes in baseline mental status. Patient is acting exactly as normal but has facial ecchymosis after fall. Not on AC. EOMI with PERRL, no deeper ocular injury suspected. No facial bone tenderness, moving neck with great strength and full ROM, low suspicion of c- spine fracture. Getting CT head, c-spine, and facial bones for further evaluation of ICH or bony fracture. 11/30/19 14:[address] scan without sedation, but patient refuses to lie still on CT table. Will give 200mg IM ketamine for sedation and will monitor respiratory status in CT. 11/30/19 15:49 Patient tolerated sedation well without any events, obtained CT without incident. Resting comfortably in bed without tachycardia or desaturation, BP artificially high due to patient not allowing cuff to measure accurately. CT results show no acute ICH, no facial bone fracture, no c-spine fracture. No laceration or wound that needs repair. Stable to be discharged home with aide and once returned to baseline mental status. Discharge - Discharge Information Problems reviewed: Yes Clinical Impression/Diagnosis: Fall Qualifiers: Encounter type: initial encounter Qualified Code(s): W19.XXXA - Unspecified fall, initial encounter Traumatic ecchymosis of face Qualifiers: Encounter type: initial encounter Qualified Code(s): S00.83XA - Contusion of other part of head, initial encounter - Admission No - Follow up/Referral Referrals: Elise Fields MD [Primary Care Provider] - - Patient Discharge Instructions Patient Printed Discharge Instructions: How to Prevent Falls Additional Instructions: Today he was evaluated for a fall. The CT scan of his head does not show broken bones or bleeding inside his head. In the future, please do not allow him to fall out of bed. If he experiences any changes in mental status, confusion or agitation worse than normal, or has any other new or concerning symptoms, please return to the emergency room. Hoy fue evaluado por lobo cada. La tomografa computarizada de boyle danny no muestra huesos rotos o sangrado dentro de boyle danny. En el futuro, por favor no permita que se caiga de la cama. Si experimenta algn cambio en el estado mental , confusin o agitacin peor de lo normal, o tiene otros sntomas nuevos o preocupantes, regrese a la gillian de emergencias. - Post Discharge Activity
[2019-11-30] MEDS ORDERED: KETAMINE HCL 200 MG/20 ML VIAL IM ONE ×2 (13:51)
[2019-11-30] MEDS ORDERED: KETAMINE HCL 200 MG/20 ML VIAL ONE (13:52)
[2019-11-30] MEDS ORDERED: KETAMINE HCL 500 MG/10 ML VIAL ONE (13:55)
--- NOTE | 2019-11-30 14:38 | PDOC ---
Documentation entered by Ashley Garza SCRIBE, acting as scribe for Mc Salvador MD. Mc Salvador MD: This documentation has been prepared by the Greg pat Adrianna, SCRIBE, under my direction and personally reviewed by me in its entirety. I confirm that the documentation accurately reflects all work, treatment, procedures, and medical decision making performed by me. Attending Attestation - Resident Resident Name: Oscar Desouza - ED Attending Attestation I have performed the following: I have examined & evaluated the patient, The case was reviewed & discussed with the resident, I agree w/resident's findings & plan, Exceptions are as noted - HPI HPI: The patient is an 88 year old male, with a significant PMH of HTN, HLD, 1st degree AV block, prostate CA, and dementia, who presents to the ED for evaluation s/p fall. Patient is demented at baseline, so home health aide and provide history at bedside. notes she went to the bathroom last night , heard a thud, and found that her had fallen out of bed and onto the floor. Patient was awake, without LOC. He was on the floor for ~5 minutes before his and daughter got him back into bed. He complained of arm pain, and had bruising to the right side of the face. Patient is at baseline mental status per family. Allergies: Tetanus toxoid, adsorbed, Surgical History: TURP Social History: No toxic habits PCP: Dr. Elise Fields - Physicial Exam PE: 11/30/19 14:39 Agree w resident exam - Medical Decision Making 11/30/19 14:39 88 M with mechanical fall out of bed. Now with facial injury. - CT head/facial bones/c-spine Imaging negative Pt is well appearing, with normal vitals. Clinically stable for DC at this time. I discussed the physical exam findings, ancillary test results and final diagnoses with the patient. I answered all of the patient's questions. The patient was satisfied with the care received and felt comfortable with the discharge plan and treatment plan. The patient agrees to follow up with the primary care physician within 24-72 hours. ED Treatment Course - RADIOLOGY Radiograph Interpretation: EXAM#: TYPE/EXAM: RESULT: [id number] CT/HEAD CT WITHOUT CONTRAST Cranial CT without contrast Clinical information: fall from bed Impression: No CT evidence of acute intracranial pathology. A chronic left frontal cortical infarct is noted which has developed since a 2018 CT exam. Reported By: Perez Berry MD 11/30/19 15:08 EXAM#: TYPE/EXAM: RESULT: [id number] CT/CERVICAL SPINE CT W/O CONTR Cervical spine CT without contrast Clinical information: fall from bed Impression: No fracture is identified. Reported By: Perez Berry MD 11/30/19 15:40 EXAM#: TYPE/EXAM: RESULT: [id number] CT/FACIAL BONES CT W/O CONTRAST Facial bones CT without contrast Clinical information fall from bed Multiplanar imaging was performed. The maxillofacial and orbital structures demonstrate no CT evidence of fracture. There appears to be superficial soft tissue edema along the right supraorbital region. The intraorbital structures demonstrate no obvious CT evidence of injury. Reported By: Perez Berry MD 11/30/19 15:46 - Medications Given in the ED: ED Medications Discontinued Medications Generic Name Dose Route Start Last Admin Trade Name Freq PRN Reason Stop Dose Admin Ketamine HCl 200 mg 11/30/19 13:47 11/30/19 14:24 Ketalar - IVPUSH 11/30/19 13:48 Not Given ONCE ONE Ketamine HCl 200 mg 11/30/19 13:48 11/30/19 14:24 Ketalar - IVPUSH 11/30/19 13:49 Not Given PRN ONE Ketamine HCl 200 mg 11/30/19 13:51 11/30/19 14:20 Ketalar - IM 11/30/19 13:52 200 mg ONCE ONE Administration Ketamine HCl 200 mg 11/30/19 13:51 11/30/19 14:24 Ketalar - IM 11/30/19 13:52 Not Given PRN ONE
[2019-11-30 16:20] VITALS: BP 159/118; PULSE 96
== END 2019-11-30 21:12 | disposition home or self-care (01) ==
LOC: JER 12:28
PROC: 3E023BZ Introduction of Anesthetic Agent into Muscle, Percutaneous Approach (ICD-10-PCS; principal; 2019-11-30)
DX: S05.11XA Contusion of eyeball and orbital tissues, right eye, initial encounter (principal); W06.XXXA Fall from bed, initial encounter; Y92.032 Bedroom in apartment as the place of occurrence of the external cause; Y99.8 Other external cause status; I10 Essential (primary) hypertension; E78.5 Hyperlipidemia, unspecified; I44.0 Atrioventricular block, first degree; G30.8 Other Alzheimer's disease; F02.81 Dementia in other diseases classified elsewhere, unspecified severity, with behavioral disturbance; Z85.46 Personal history of malignant neoplasm of prostate; Z88.7 Allergy status to serum and vaccine
CPT/HCPCS: 70450-TC; 70486-TC; 72125-TC; 96372; 99282-25